=== PATIENT | female | born 1940 ===

== ENCOUNTER 2017-07-15 08:47 | Observation (INO) | payer MEDICARE ==
[2017-07-15] MEDS ORDERED: NITROGLYCERIN OINT 1 INCH/GM PACKET TOPICAL STA (09:16)
[2017-07-15] MEDS ORDERED: ASPIRIN 81 MG PO STA (09:16)
--- NOTE | 2017-07-15 09:22 | ED ---
General Adult HPI - General Chief complaint: Chest Pain Stated complaint: Chest pain Time Seen by Provider: 07/15/17 08:59 Source: patient, RN notes reviewed Mode of arrival: wheelchair Limitations: no limitations - History of Present Illness Initial comments: Patient is a pleasant 76-year-old female presenting to the emergency department with difficulty sleeping and cold/tightness in her chest. Patient admits to having some anxiety. Patient states she has not slept well for the past couple of weeks. Patient states last few nights she has a cold sensation in her chest that also feels somewhat like tightness. Patient states it usually lasts only 10 or 15 minutes. Patient states aspirin helps make it go away. Patient is currently symptom-free at this time. Patient states he may have some mild associated nausea with this. Patient is unclear if she has associated dyspnea. No diaphoresis. - Related Data Home Medications Medication Instructions Recorded Confirmed Aspirin 81 mg PO DAILY 07/15/17 07/15/17 Multivitamins, Thera [Multivitamin 1 tab PO DAILY 07/15/17 07/15/17 (formulary)] amLODIPine BESYLATE/BENAZEPRIL 1 cap PO DAILY 07/15/17 07/15/17 [Lotrel 10-20 mg Capsule] busPIRone HCl [Buspar] 5 mg PO BID 07/15/17 07/15/17 Allergies Allergy/AdvReac Type Severity Reaction Status Date / Time animal dander Allergy Unknown Verified 07/15/17 09:52 shellfish derived [Shellfish] Allergy Anaphylaxis Verified 07/15/17 09:52 Review of Systems ROS Statement: Those systems with pertinent positive or pertinent negative responses have been documented in the HPI. ROS Other: All systems not noted in ROS Statement are negative. Constitutional: Denies: fever Eyes: Denies: eye pain ENT: Denies: ear pain Respiratory: Denies: cough Cardiovascular: Reports: chest pain Endocrine: Denies: fatigue Gastrointestinal: Denies: abdominal pain Genitourinary: Denies: dysuria Musculoskeletal: Denies: back pain Skin: Denies: rash Neurological: Denies: weakness Past Medical History Past Medical History: Hypertension, Osteoarthritis (OA) History of Any Multi-Drug Resistant Organisms: None Reported Past Surgical History: Joint Replacement Additional Past Surgical History / Comment(s): oral Past Psychological History: Anxiety Smoking Status: Never smoker Past Alcohol Use History: Rare Past Drug Use History: None Reported General Exam Limitations: no limitations General appearance: alert, in no apparent distress Head exam: Present: atraumatic Eye exam: Present: normal appearance, PERRL ENT exam: Present: normal oropharynx Neck exam: Present: normal inspection Respiratory exam: Present: normal lung sounds bilaterally Cardiovascular Exam: Present: regular rate, normal rhythm Expanded Peripheral pulses: 2+: Radial (R), Radial (L), Posterior Tibialis (R), Posterior Tibialis (L) GI/Abdominal exam: Present: soft. Absent: tenderness Extremities exam: Present: normal inspection. Absent: calf tenderness Neurological exam: Present: alert Psychiatric exam: Present: normal affect, normal mood Skin exam: Present: normal color Course Vital Signs 07/15/17 07/15/17 07/15/17 08:52 10:11 11:19 Temperature 97.5 F L Pulse Rate 68 67 69 Respiratory 16 16 18 Rate Blood Pressure 143/64 131/63 129/69 O2 Sat by Pulse 98 98 99 Oximetry EKG Findings - EKG Comments: EKG Findings:: Normal sinus rhythm 61. W[place] 146. QRS 92. QT 408. QTC 410. Left axis. Normal QRS. Nonspecific T waves. Medical Decision Making - Lab Data Result diagrams: 07/15/17 09:19 07/15/17 09:19 Lab Results 07/15/17 07/15/17 07/15/17 Range/Units 09:19 09:19 09:19 WBC 8.2 (3.8-10.6) k/uL RBC 5.53 H (3.80-5.40) m/uL Hgb 16.7 H (11.4-16.0) gm/dL Hct 52.3 H (34.0-46.0) % MCV 94.6 (80.0-100.0) fL MCH 30.2 (25.0-35.0) pg MCHC 31.9 (31.0-37.0) g/dL RDW 14.8 (11.5-15.5) % Plt Count 287 (150-450) k/uL Neutrophils % 74 % Lymphocytes % 18 % Monocytes % 5 % Eosinophils % 1 % Basophils % 1 % Neutrophils # 6.1 (1.3-7.7) k/uL Lymphocytes # 1.5 (1.0-4.8) k/uL Monocytes # 0.4 (0-1.0) k/uL Eosinophils # 0.1 (0-0.7) k/uL Basophils # 0.0 (0-0.2) k/uL PT (9.0-12.0) sec INR (<1.2) APTT (22.0-30.0) sec D-Dimer (<0.60) mg/L FEU Sodium 141 (137-145) mmol/L Potassium 4.1 (3.5-5.1) mmol/L Chloride 107 (98-107) mmol/L Carbon Dioxide 23 (22-30) mmol/L Anion Gap 11 mmol/L BUN 10 (7-17) mg/dL Creatinine 0.75 (0.52-1.04) mg/dL Est GFR (MDRD) Af Amer >60 (>60 ml/min/1.73 sqM) Est GFR (MDRD) Non-Af >60 (>60 ml/min/1.73 sqM) Glucose 114 H (74-99) mg/dL Calcium 10.2 (8.4-10.2) mg/dL Magnesium 2.1 (1.6-2.3) mg/dL Total Bilirubin 1.0 (0.2-1.3) mg/dL AST 22 (14-36) U/L ALT 32 (9-52) U/L Alkaline Phosphatase 125 (38-126) U/L Total Creatine Kinase 44 (30-135) U/L CK-MB (CK-2) 0.7 (0.0-2.4) ng/mL CK-MB (CK-2) Rel Index 1.6 Troponin I <0.012 (0.000-0.034) ng/mL Total Protein 7.3 (6.3-8.2) g/dL Albumin 4.3 (3.5-5.0) g/dL Urine Color Urine Appearance (Clear) Urine pH (5.0-8.0) Ur Specific [place] (1.001-1.035) Urine Protein (Negative) Urine Glucose (UA) (Negative) Urine Ketones (Negative) Urine Blood (Negative) Urine Nitrite (Negative) Urine Bilirubin (Negative) Urine Urobilinogen (<2.0) mg/dL Ur Leukocyte Esterase (Negative) 11/13/17 11/13/17 Range/Units 09:19 10:51 WBC (3.8-10.6) k/uL RBC (3.80-5.40) m/uL Hgb (11.4-16.0) gm/dL Hct (34.0-46.0) % MCV (80.0-100.0) fL MCH (25.0-35.0) pg MCHC (31.0-37.0) g/dL RDW (11.5-15.5) % Plt Count (150-450) k/uL Neutrophils % % Lymphocytes % % Monocytes % % Eosinophils % % Basophils % % Neutrophils # (1.3-7.7) k/uL Lymphocytes # (1.0-4.8) k/uL Monocytes # (0-1.0) k/uL Eosinophils # (0-0.7) k/uL Basophils # (0-0.2) k/uL PT 10.4 (9.0-12.0) sec INR 1.0 (<1.2) APTT 24.7 (22.0-30.0) sec D-Dimer 0.60 H (<0.60) mg/L FEU Sodium (137-145) mmol/L Potassium (3.5-5.1) mmol/L Chloride (98-107) mmol/L Carbon Dioxide (22-30) mmol/L Anion Gap mmol/L BUN (7-17) mg/dL Creatinine (0.52-1.04) mg/dL Est GFR (MDRD) Af Amer (>60 ml/min/1.73 sqM) Est GFR (MDRD) Non-Af (>60 ml/min/1.73 sqM) Glucose (74-99) mg/dL Calcium (8.4-10.2) mg/dL Magnesium (1.6-2.3) mg/dL Total Bilirubin (0.2-1.3) mg/dL AST (14-36) U/L ALT (9-52) U/L Alkaline Phosphatase (38-126) U/L Total Creatine Kinase (30-135) U/L CK-MB (CK-2) (0.0-2.4) ng/mL CK-MB (CK-2) Rel Index Troponin I (0.000-0.034) ng/mL Total Protein (6.3-8.2) g/dL Albumin (3.5-5.0) g/dL Urine Color Light Yellow Urine Appearance Clear (Clear) Urine pH 5.0 (5.0-8.0) Ur Specific [place] 1.011 (1.001-1.035) Urine Protein Negative (Negative) Urine Glucose (UA) Negative (Negative) Urine Ketones Negative (Negative) Urine Blood Negative (Negative) Urine Nitrite Negative (Negative) Urine Bilirubin Negative (Negative) Urine Urobilinogen <2.0 (<2.0) mg/dL Ur Leukocyte Esterase Negative (Negative) - Radiology Data Radiology results: report reviewed (Computed tomography scan of the chest shows no evidence for pulmonary embolism.), image reviewed (Chest x-ray shows mild cardiomegaly.) Disposition Clinical Impression: Chest pain Disposition: ADMITTED IP TO THIS HOSP Referrals: Chantelle Simpson MD [Primary Care Provider] - 1-2 days Decision Time: 11:30
[2017-07-15 09:39] LABS: Basophils % (A) 1 %; CH 30.6; CHCM 32.5; Eosinophils # (A) 0.1 k/uL (0-0.7); Eosinophils % (A) 1 %; HCT 52.3 % (34.0-46.0); HDW 2.22; HGB 16.7 gm/dL (11.4-16.0); Luc # (Auto) 0.08; Luc % (Auto) 1; Lymphocytes # (A) 1.5 k/uL (1.0-4.8); Lymphocytes % (A) 18 %; MCH 30.2 pg (25.0-35.0); MCHC 31.9 g/dL (31.0-37.0); MCV 94.6 fL (80.0-100.0); Mean Platelet Volume 7.2; Monocytes # (A) 0.4 k/uL (0-1.0); Monocytes % (A) 5 %; Neutrophils # (A) 6.1 k/uL (1.3-7.7); Neutrophils % (A) 74 %; RBC 5.53 m/uL (3.80-5.40); RDW 14.8 % (11.5-15.5); WBC 8.2 k/uL (3.8-10.6); WBC (Perox) 7.96
--- NOTE | 2017-07-15 09:51 | XR ---
EXAMINATION TYPE: XR chest 2V DATE OF EXAM: 07/15/2017 COMPARISON: None HISTORY: 76-year-old female with chest pain TECHNIQUE: Frontal and lateral views FINDINGS: The heart is mildly enlarged. Mild diffuse interstitial prominence. No consolidation or pleural effus ion. IMPRESSION: Mild cardiomegaly. Mild interstitial prominence has a chronic appearance. No acute process seen.
[2017-07-15 09:53] LABS: Partial Thromboplastin Time 24.7 sec (22.0-30.0); Prothrombin Time 10.4 sec (9.0-12.0)
[2017-07-15 09:54] LABS: ALT 32 U/L (9-52); AST 22 U/L (14-36); Alkaline Phosphatase 125 U/L (38-126); Anion Gap 11 mmol/L; Blood Urea Nitrogen 10 mg/dL (7-17); Calcium 10.2 mg/dL (8.4-10.2); Carbon Dioxide 23 mmol/L (22-30); Chloride 107 mmol/L (98-107); Glucose 114 mg/dL (74-99); Magnesium 2.1 mg/dL (1.6-2.3); Non-African American GFR(MDRD) >60 (>60 ml/min/1.73 sqM); Potassium 4.1 mmol/L (3.5-5.1); Sodium 141 mmol/L (137-145); Total Protein 7.3 g/dL (6.3-8.2)
[2017-07-15] MEDS ORDERED: FAMOTIDINE 20 MG/2 ML VIAL IV STA (09:58)
[2017-07-15] MEDS ORDERED: RX INFO: IV CONTRAST WAS GIVEN 1 EACH MISC MISCELLANE PRN (09:58)
[2017-07-15] MEDS ORDERED: diphenhydrAMINE 50 MG/ML 1 ML VIAL IVP STA (09:58)
[2017-07-15] MEDS ORDERED: methylPREDNISolone SOD SUCCI 125 MG/2 ML VIAL IV STA (09:58)
[2017-07-15 10:03] LABS: Creatine Kinase 44 U/L (30-135)
[2017-07-15 10:15] LABS: Creatine Kinase MB 0.7 ng/mL (0.0-2.4); Troponin I <0.012 ng/mL (0.000-0.034)
--- NOTE | 2017-07-15 10:48 | CT ---
EXAMINATION TYPE: CT angio chest DATE OF EXAM: 07/15/2017 COMPARISON: NONE HISTORY: chest tightness, elevated d-dimer CT DLP: 479.5 mGycm CONTRAST: CT chest with contrast and 3D reconstruction with MIP imaging is performed with IV Contrast, patient injected with 70 mL of Omnipaque 350. Contrast-enhanced CT of the chest was performed through the course of the pulmonary arteries with herminia g and mediastinal window settings submitted. 3D reconstruction with MIP imaging was also performed. PULMONARY ARTERIES: The pulmonary arteries and their major tributaries are patent. I do not see shara dence for sizable filling defect to suggest pulmonary embolic process. LUNGS: The lungs are clear and free of infiltrate. Minimal scattered linear atelectasis. No pulmonary nodule or mass is detected. No pleural effusion. MEDIASTINUM: Thoracic aorta is of normal caliber . The heart is not enlarged. No evidence for media stinal mass. No mediastinal lymph nodes greater than 1cm. HILAR STRUCTURES: No evidence for mass. No hilar lymph nodes greater than 1 cm. UPPER ABDOMEN: No significant abnormality is seen. IMPRESSION: 1. No evidence for Pulmonary embolism at this time.
[2017-07-15 11:22] LABS: Appearance,Urine Clear (Clear); Bilirubin,Urine Negative (Negative); Glucose,Urine (UA) Negative (Negative); Ketones,Urine Negative (Negative); Leukocyte Esterase,Urine Negative (Negative); Nitrite,Urine Negative (Negative); Protein,Urine Negative (Negative); Specific Gravity,Urine 1.011 (1.001-1.035); UA Billing (MACRO vs. MICRO) CHEM; Urobilinogen,Urine <2.0 mg/dL (<2.0)
[2017-07-15] MEDS ORDERED: NITROGLYCERIN SL TABS 0.4 MG TAB SUBLINGUAL PRN (11:36)
--- NOTE | 2017-07-15 12:11 | XR ---
EXAMINATION TYPE: XR abdomen 1V DATE OF EXAM: 07/15/2017 CLINICAL DATA: 76-year-old female with pain, [facility] COMPARISON: 10/19/2013 FINDINGS: Supine imaging is limited for assessment of free air. Contrast is seen excreting from the renal collecting systems and accumulating in the bladder in keepi ng with patient's recent contrast-enhanced CT exam. No dilated small bowel loops. No significant stool burden. Left total hip arthroplasty partially visualized. Degenerated levoconvex curvature of the lumbar spin e. Suspect that this is in part positional. IMPRESSION: Nonobstructive bowel gas pattern. Excretion of contrast from the kidneys compatible with recent CT an giography study.
[2017-07-15 12:31] VITALS: RESP 18
[2017-07-15 15:30] LABS: Creatine Kinase 45 U/L (30-135)
[2017-07-15 15:43] LABS: Creatine Kinase MB 0.7 ng/mL (0.0-2.4); Troponin I <0.012 ng/mL (0.000-0.034)
[2017-07-15] MEDS: NITROGLYCERIN OINT 1 INCH/GM PACKET TOPICAL SCH ×3 (17:07→23:51)
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
[2017-07-15 21:38] LABS: Creatine Kinase MB 0.5 ng/mL (0.0-2.4); Troponin I 0.018 ng/mL (0.000-0.034)
[2017-07-16 05:19] LABS: Cholesterol 199 mg/dL (<200); HDL Cholesterol 60 mg/dL (40-60)
[2017-07-16] MEDS: NITROGLYCERIN OINT 1 INCH/GM PACKET TOPICAL SCH ×2 (05:35→12:10)
[2017-07-16] MEDS ORDERED: LISINOPRIL 20 MG TAB PO SCH (09:00)
[2017-07-16] MEDS ORDERED: ASPIRIN 325 MG TAB PO SCH (09:00)
[2017-07-16] MEDS ORDERED: amLODIPine 10 MG TAB PO SCH (09:00)
[2017-07-16] MEDS ORDERED: DOBUTamine DRIP for NUC MED 500 MG in DEXTROSE/WATER 1 250ML.BAG IV ONE (10:53)
[2017-07-16 11:06] VITALS: BMI 43.0
[2017-07-16] MEDS ORDERED: MULTIVITAMINS, THERA 1 EACH TAB PO SCH (12:00)
--- NOTE | 2017-07-16 12:08 | P.CRDCN ---
History of Present Illness Consult date: 07/16/17 History of present illness: This is a 76-year-old female past medical history significant for hypertension, anxiety and morbid obesity. She denies history of coronary artery disease, has never undergone cardiac catheterization or stress testing. We've been asked to see this patient in consultation for complaints of chest pain. Per the patient she states she has been suffering from extreme anxiety recently and was started on BuSpar in the beginning of July per her PCP. Since starting that medication she has experienced gastrointestinal side effects such as nausea, abdominal pain and diarrhea. This has been intermittent over the previous 3 weeks. She also describes a sensation of cold feeling down bilateral arms her chest and neck. She states she can feel this coming on and she can make it go away by taking deep breaths and talking to herself to calm her down. At the time of my examination she is chest pain- free. She denies associated shortness of breath, dizziness, palpitations, diaphoresis or vomiting. She also states she has had left flank pain which she is associating with probable kidney stone she has a significant history for follows urology regularly. EKG reveals sinus mechanism with nonspecific T-wave abnormality. There is no old EKG for comparison. Chest x-ray reveals cardiomegaly. No acute cardiopulmonary process. CT angios was performed in light of an elevated d-dimer was negative for PE. Cardiac enzymes negative 3. Cardiac risk factors include hypertension, hyperlipidemia and morbid obesity. Review of Systems CONSTITUTIONAL: Denies fever. Denies chills. EYES: Denies blurred vision. Denies vision changes. Denies eye pain. EARS, NOSE, MOUTH & THROAT: Denies headache. Denies sore throat. Denies ear pain. CARDIOVASCULAR: Complains of intermittent episodes of chest tightness. Denies shortness of breath. Denies orthopnea. Denies PND. Denies palpitations. RESPIRATORY: Denies cough. GASTROINTESTINAL: Denies abdominal pain. Complains of diarrhea. Denies constipation. Complains of nausea. Denies vomiting. MUSCULOSKELETAL: Denies myalgias. INTEGUMENTARY: Denies pruitis. Denies rash. NEUROLOGIC: Denies numbness. Denies tingling. Denies weakness. PSYCHIATRIC: Denies anxiety. Denies depression. ENDOCRINE: Denies fatigue. Denies weight change. Denies polydipsia. Denies polyurina. GENITOURINARY: Denies burning, hematuria or urgency with micturation. HEMATOLOGIC: Denies history of anemia. Denies bleeding. Past Medical History Past Medical History: Hypertension, Osteoarthritis (OA) Additional Past Medical History / Comment(s): Nephrolithiasis, nephritis, UTI, bronchitis, pleurisy, arthritis R shoulder L knee and L hip (had hip surgery). History of Any Multi-Drug Resistant Organisms: None Reported Past Surgical History: Joint Replacement Additional Past Surgical History / Comment(s): oral Additional Past Anesthesia/Blood Transfusion Reaction / Comment(s): Pt states post op day1 after hip surgery she had hallucinations. Past Psychological History: Anxiety Smoking Status: Never smoker Past Alcohol Use History: Rare Past Drug Use History: None Reported - Past Family History Mother Family Medical History: Hypertension Additional Family Medical History / Comment(s): Mother lived to be 93 or 94yrs old. Father Additional Family Medical History / Comment(s): Father at the age of 64 yrs. Pt unsure of father's medical hx. Medications and Allergies Home Medications Medication Instructions Recorded Confirmed Type Aspirin 81 mg PO DAILY 07/15/17 07/15/17 History Multivitamins, Thera [Multivitamin 1 tab PO DAILY 07/15/17 07/15/17 History (formulary)] amLODIPine BESYLATE/BENAZEPRIL 1 cap PO DAILY 07/15/17 07/15/17 History [Lotrel 10-20 mg Capsule] busPIRone HCl [Buspar] 5 mg PO BID 07/15/17 07/15/17 History Allergies Allergy/AdvReac Type Severity Reaction Status Date / Time animal dander Allergy Unknown Verified 07/15/17 09:52 shellfish derived [Shellfish] Allergy Anaphylaxis Verified 07/15/17 09:52 Physical Exam Vitals: Vital Signs Temp Pulse Pulse Resp BP BP Pulse Ox 07/16/17 07:55 97.8 F 72 18 148/79 95 07/16/17 04:00 97.8 F 77 18 145/80 97 07/16/17 03:51 18 07/15/17 23:51 18 07/15/17 23:47 98 F 61 18 108/52 95 07/15/17 20:00 98.1 F 72 18 138/73 94 L 07/15/17 16:00 98.3 F 91 18 131/78 96 07/15/17 12:29 97.9 F 77 18 129/70 99 07/15/17 12:00 97.1 F L 72 20 149/68 98 07/15/17 11:19 69 18 129/69 99 07/15/17 10:11 67 16 131/63 98 Intake and Output 07/15/17 07/16/17 07/16/17 22:59 06:59 14:59 Intake Total 360 Balance 360 Intake: Oral 360 Other: Voiding Method Toilet Toilet # Voids 1 1 GENERAL: This is a 76-year-old female in no apparent distress at the time of my examination. Morbidly obese. HEENT: Head is atraumatic, normocephalic. Pupils are equal, round. Sclerae anicteric. Conjunctivae are clear. Mucous membranes of the mouth are moist. Neck is supple. There is no jugular venous distention. No carotid bruit is heard. LUNGS: Clear to auscultation no wheezes, rales or rhonchi. No chest wall tenderness is noted on palpation or with deep breathing. HEART: Regular rate and rhythm without murmurs, rubs or gallops. S1 and S2 heard. ABDOMEN: Soft, nontender. Bowel sounds are heard. No organomegaly noted. EXTREMITIES: 2+ peripheral pulses with no evidence of peripheral edema and no calf tenderness noted. NEUROLOGIC: Patient is awake, alert and oriented x3. Results 07/15/17 09:19 07/15/17 09:19 Cardiac Enzymes 07/15/17 07/15/17 07/15/17 Range/Units 09:19 09:19 14:54 AST 22 (14-36) U/L CK-MB (CK-2) 0.7 0.7 (0.0-2.4) ng/mL Troponin I <0.012 <0.012 (0.000-0.034) ng/mL 07/15/17 Range/Units 20:50 AST (14-36) U/L CK-MB (CK-2) 0.5 (0.0-2.4) ng/mL Troponin I 0.018 (0.000-0.034) ng/mL Coagulation 07/15/17 Range/Units 09:19 PT 10.4 (9.0-12.0) sec APTT 24.7 (22.0-30.0) sec Lipids 07/15/17 Range/Units 09:19 Triglycerides 93 (<150) mg/dL Cholesterol 199 (<200) mg/dL HDL Cholesterol 60 (40-60) mg/dL CBC 07/15/17 Range/Units 09:19 WBC 8.2 (3.8-10.6) k/uL RBC 5.53 H (3.80-5.40) m/uL Hgb 16.7 H (11.4-16.0) gm/dL Hct 52.3 H (34.0-46.0) % Plt Count 287 (150-450) k/uL Comprehensive Metabolic Panel 07/15/17 Range/Units 09:19 Sodium 141 (137-145) mmol/L Potassium 4.1 (3.5-5.1) mmol/L Chloride 107 (98-107) mmol/L Carbon Dioxide 23 (22-30) mmol/L BUN 10 (7-17) mg/dL Creatinine 0.75 (0.52-1.04) mg/dL Glucose 114 H (74-99) mg/dL Calcium 10.2 (8.4-10.2) mg/dL AST 22 (14-36) U/L ALT 32 (9-52) U/L Alkaline Phosphatase 125 (38-126) U/L Total Protein 7.3 (6.3-8.2) g/dL Albumin 4.3 (3.5-5.0) g/dL Current Medications Generic Name Dose Route Start Last Admin Trade Name Freq PRN Reason Stop Dose Admin Amlodipine Besylate 10 mg 07/16/17 09:00 Norvasc PO DAILY [facility] Aspirin 325 mg 07/16/17 09:00 Aspirin PO DAILY [facility] Lisinopril 20 mg 07/16/17 09:00 Zestril PO DAILY [facility] Miscellaneous Information 1 each 07/15/17 09:58 07/15/17 10:10 Rx Info: Iv Contrast Was Given MISCELLANE 07/17/17 09:58 1 each DAILY PRN Administration Per Protocol Multivitamins 1 each 07/16/17 12:00 Theragran PO DAILY@1200 [facility] Nitroglycerin 1 inch 07/15/17 12:00 07/16/17 05:35 Nitro-Bid Oint TOPICAL Not Given Q6HR [facility] Nitroglycerin 0.4 mg 07/15/17 11:36 Nitrostat SUBLINGUAL Q5M PRN Chest Pain Sodium Chloride 10 ml 07/15/17 21:00 07/15/17 20:31 Saline Flush IV 10 ml BID MANJU Administration Intake and Output 07/15/17 07/16/17 07/16/17 22:59 06:59 14:59 Intake Total 360 Balance 360 Intake: Oral 360 Other: Voiding Method Toilet Toilet # Voids 1 1 07/15/17 09:19 07/15/17 09:19 Assessment and Plan Assessment: ASSESSMENT 1. Chest pain, atypical 2. Hypertension, controlled 3. Hyperlipidemia, pt refuses to take statins 4. Anxiety 5. Morbid obesity PLAN Obtain echocardiogram to assess cardiac structure and function. Acute myocardial infarction has been ruled out. Dobutamine stress echocardiogram has been recommended, although the patient is refusing. The importance of this test has been discussed and she still declines. She has been instructed to follow up with her primary care physician for further discussion and possible cardiac evaluation. Lifestyle modifications have been discussed. Thank you kindly for this consultation. Nurse Practitioner note has been reviewed, I agree with a documented findings and plan of care. Patient was seen and examined.
--- NOTE | 2017-07-16 12:20 | ECHOF ---
Referral Reason:Chest pain MEASUREMENTS -------- HEIGHT: 154.9 cm WEIGHT: 103.0 kg BP: 148/79 RVIDd: 3.1 cm (< 3.3) IVSd: 1.1 cm (0.6 - 1.1) LVIDd: 4.7 cm (3.9 - 5.3) LVPWd: 1.0 cm (0.6 - 1.1) IVSs: 1.5 cm LVIDs: 3.2 cm LVPWs: 1.7 cm LA Diam: 3.5 cm (2.7 - 3.8) LAESV Index (A-L): 20.15 ml/m Ao Diam: 3.6 cm (2.0 - 3.7) AV Cusp: 2.0 cm (1.5 - 2.6) MV EXCURSION: 22.473 mm (> 18.000) MV EF SLOPE: 63 mm/s (70 - 150) EPSS: 1.0 cm MV E Lalito: 1.01 m/s MV DecT: 145 ms MV A Lalito: 1.13 m/s MV E/A Ratio: 0.90 AV maxP.53 mmHg AV meanP.26 mmHg RAP: 5.00 mmHg RVSP: 18.87 mmHg FINDINGS -------- Sinus rhythm. This was a technically adequate study. The left ventricular size is normal. There is borderline concentric left ventricular hypertrophy. Overall left ventricular systolic function is normal with, an EF between 55 - 60 %. The right ventricle is normal in size. Normal LA size by volume 22+/-6 ml/m2. The right atrium is normal in size. Aortic valve is trileaflet and is mildly thickened. The mitral valve leaflets are mildly thickened. Mild mitral annular calcification present. There is trace mitral regurgitation. Mild tricuspid regurgitation present. Right ventricular systolic pressure is normal at < 35 mmHg. Trace/mild (physiologic) pulmonic regurgitation. The aortic root size is normal. Normal inferior vena cava with normal inspiratory collapse consistent with estimated right atrial pre ssure of 5 mmHg. There is no pericardial effusion. CONCLUSIONS -------- 1. Sinus rhythm. 2. This was a technically adequate study. 3. The left ventricular size is normal. 4. There is borderline concentric left ventricular hypertrophy. 5. Overall left ventricular systolic function is normal with, an EF between 55 - 60 %. 6. The right ventricle is normal in size. 7. Normal LA size by volume 22+/-6 ml/m2. 8. The right atrium is normal in size. 9. Aortic valve is trileaflet and is mildly thickened. 10. The mitral valve leaflets are mildly thickened. 11. Mild mitral annular calcification present. 12. There is trace mitral regurgitation. 13. Mild tricuspid regurgitation present. 14. Right ventricular systolic pressure is normal at < 35 mmHg. 15. Trace/mild (physiologic) pulmonic regurgitation. 16. The aortic root size is normal. 17. Normal inferior vena cava with normal inspiratory collapse consistent with estimated right atrial pressure of 5 mmHg. 18. There is no pericardial effusion. STERILE TECH: Jami Stark RDCS
[2017-07-16 15:44] VITALS: BP 123/68; PULSE 76; TEMP 97.3
--- NOTE | 2017-07-16 17:54 | P.DS ---
Providers Date of admission: 07/15/17 11:37 Attending physician: Jose Madrigal Consults: 07/15/17 11:36 Consult Physician Urgent Consulting Provider: Ana Cristina Pike Consult Reason/Comments: cp Do you want consulting provider notified?: Yes Primary care physician: Chantelle [place] [facility] Course: Patient was admitted with atypical chest pain, declined to undergo stress test. Patient will follow with cardiology as an outpatient. Patient appears to be an anxious person has multitude of symptoms all of which completely resolved at this point of time patient was asked to follow with PCP as an outpatient closely. I spent extensive amount of time answering her questions. PHYSICAL EXAMINATION: GENERAL: The patient is alert and oriented x3, not in any acute distress. Well developed, well nourished. HEENT: Pupils are round and equally reacting to light. EOMI. No scleral icterus. No conjunctival pallor. Normocephalic, atraumatic. No pharyngeal erythema. No thyromegaly. CARDIOVASCULAR: S1 and S2 present. No murmurs, rubs, or gallops. PULMONARY: Chest is clear to auscultation, no wheezing or crackles. ABDOMEN: Soft, nontender, nondistended, normoactive bowel sounds. No palpable organomegaly. MUSCULOSKELETAL: No joint swelling or deformity. EXTREMITIES: No cyanosis, clubbing, or pedal edema. NEUROLOGICAL: Gross neurological examination did not reveal any focal deficits. SKIN: No rashes. #1 chest tightness. Likely due to anxiety and insomnia. Ruled out acute coronary syndromes #2 hypertension controlled #3 osteoarthritis with history of left hip arthroplasty #4 anxiety Plan - Discharge Summary Discharge Rx Participant: No New Discharge Prescriptions: No Action busPIRone HCl [Buspar] 5 mg PO BID amLODIPine BESYLATE/BENAZEPRIL [Lotrel 10-20 mg Capsule] 1 cap PO DAILY Multivitamins, Thera [Multivitamin (formulary)] 1 tab PO DAILY Aspirin 81 mg PO DAILY Discharge Medication List Aspirin 81 mg PO DAILY 07/15/17 [History] Multivitamins, Thera [Multivitamin (formulary)] 1 tab PO DAILY 07/15/17 [History ] amLODIPine BESYLATE/BENAZEPRIL [Lotrel 10-20 mg Capsule] 1 cap PO DAILY [History] busPIRone HCl [Buspar] 5 mg PO BID 07/15/17 [History] Follow up Appointment(s)/Referral(s): Chantelle Simpson MD [Primary Care Provider] - 3 Days Patient Instructions/Handouts: Chest Pain (GEN) Discharge Disposition: HOME SELF-CARE
== END 2017-07-16 15:56 | disposition home or self-care (01) ==
LOC: EC 08:47 → 3OBS 11:37
PROVIDERS: ADMIT Hospitalist; ATTEND Hospitalist
DX: R07.89 Other chest pain (principal); G47.00 Insomnia, unspecified; F41.9 Anxiety disorder, unspecified; E78.5 Hyperlipidemia, unspecified; E66.01 Morbid (severe) obesity due to excess calories; I11.9 Hypertensive heart disease without heart failure; M19.011 Primary osteoarthritis, right shoulder; Z79.82 Long term (current) use of aspirin; Z79.899 Other long term (current) drug therapy; Z82.49 Family history of ischemic heart disease and other diseases of the circulatory system; Z68.41 Body mass index [BMI] 40.0-44.9, adult; Z71.3 Dietary counseling and surveillance
CPT/HCPCS: 96374; 96375; 99285; 36415; 93005; 93306; 85379; 80061; 80053; 82550; 82553; 83735; 84484; 85025; 85610; 85730; 81003; 71020; 74000; 71275; G0378 ×2; J1200; J2930; Q9967

== ENCOUNTER 2017-08-19 20:40 | Emergency (ER) | payer MEDICARE ==
--- NOTE | 2017-08-19 21:20 | ED ---
Abdominal Pain HPI - General Chief Complaint: Abdominal Pain Stated Complaint: abdominal & shoulder pain/burning Time Seen by Provider: 08/19/17 20:57 Source: patient Mode of arrival: wheelchair Limitations: no limitations - History of Present Illness MD Complaint: abdominal pain -: days(s) Location: periumbilical, epigastric Radiation: none Migration to: no migration Severity: moderate Quality: burning Consistency: intermittent Improves With: nothing Worsens With: nothing Associated Symptoms: denies other symptoms - Related Data Home Medications Medication Instructions Recorded Confirmed Aspirin 81 mg PO DAILY 07/15/17 08/27/17 Cephalexin [Keflex] 2,000 mg PO DIRECTED PRN 08/15/17 08/27/17 Sertraline HCl [Zoloft] 25 mg PO DAILY@1200 08/15/17 08/27/17 Previous Rx's Medication Instructions Recorded ALPRAZolam [Xanax] 0.25 mg PO TID PRN #20 tab 08/28/17 Omeprazole [PriLOSEC] 20 mg PO AC-BID #30 cap 08/28/17 amLODIPine BESYLATE/BENAZEPRIL 0.5 cap PO DAILY #0 08/28/17 [Lotrel 10-20 mg Capsule] Allergies Allergy/AdvReac Type Severity Reaction Status Date / Time animal dander Allergy Unknown Verified 08/27/17 18:39 iodine Allergy Anaphylaxis Verified 08/27/17 18:39 shellfish derived [Shellfish] Allergy Anaphylaxis Verified 08/27/17 18:39 sulfamethoxazole Allergy Unknown Verified 08/27/17 18:39 [From Bactrim] trimethoprim [From Bactrim] Allergy Unknown Verified 08/27/17 18:39 Review of Systems ROS Statement: Those systems with pertinent positive or pertinent negative responses have been documented in the HPI. ROS Other: All systems not noted in ROS Statement are negative. Constitutional: Reports: weakness. Denies: fever, chills Respiratory: Denies: cough, dyspnea Cardiovascular: Denies: chest pain, palpitations, edema, syncope Gastrointestinal: Reports: abdominal pain, nausea. Denies: vomiting, diarrhea, melena, hematochezia Genitourinary: Denies: dysuria, hematuria Musculoskeletal: Denies: back pain Skin: Denies: rash Neurological: Denies: headache, weakness, numbness Past Medical History Past Medical History: Hypertension, Osteoarthritis (OA) Additional Past Medical History / Comment(s): Nephrolithiasis, nephritis, UTI, bronchitis, pleurisy, arthritis R shoulder L knee and L hip (had hip surgery). History of Any Multi-Drug Resistant Organisms: None Reported Past Surgical History: Joint Replacement Additional Past Surgical History / Comment(s): oral Additional Past Anesthesia/Blood Transfusion Reaction / Comment(s): Pt states post op day1 after hip surgery she had hallucinations. Past Psychological History: Anxiety Smoking Status: Never smoker Past Alcohol Use History: None Reported Past Drug Use History: None Reported - Past Family History Mother Family Medical History: Hypertension Additional Family Medical History / Comment(s): Mother lived to be 93 or 94yrs old. Father Additional Family Medical History / Comment(s): Father at the age of 64 yrs. Pt unsure of father's medical hx. General Exam Limitations: no limitations General appearance: alert, in no apparent distress, obese Head exam: Present: atraumatic, normocephalic Eye exam: Present: normal appearance. Absent: scleral icterus, conjunctival injection ENT exam: Present: normal oropharynx Neck exam: Present: normal inspection Respiratory exam: Present: normal lung sounds bilaterally. Absent: respiratory distress, wheezes, rales, rhonchi, stridor Cardiovascular Exam: Present: regular rate, normal rhythm, normal heart sounds. Absent: systolic murmur, diastolic murmur GI/Abdominal exam: Present: soft. Absent: distended, tenderness, guarding, rebound, rigid Extremities exam: Present: normal inspection, normal capillary refill. Absent: pedal edema, calf tenderness Back exam: Present: normal inspection. Absent: CVA tenderness (R), CVA tenderness (L) Neurological exam: Present: alert Skin exam: Present: warm, dry, intact, normal color. Absent: rash Course Vital Signs 08/19/17 08/19/17 08/20/17 20:47 23:03 00:28 Temperature 98.3 F 98.5 F 97.6 F Pulse Rate 84 68 62 Respiratory 18 19 Rate Blood Pressure 170/78 140/73 161/92 O2 Sat by Pulse 98 97 98 Oximetry Medical Decision Making - Medical Decision Making Patient is 76-year-old woman who has been having intermittent abdominal pains and intermittent chest/back pains going back for a couple of months. I did recommend admission for telemetry monitoring, serial cardiac enzymes, and cardiology consultation to again see about stress test, but the patient is refusing this. She does have an existing appointment with her physician tomorrow and will keep this. She is currently pain-free at the moment and I discussed return parameters. Discussed further follow-up and answered all questions. - Lab Data Result diagrams: 08/19/17 21:15 08/19/17 21:15 Lab Results 08/19/17 08/19/17 08/19/17 Range/Units 21:15 21:15 21:15 WBC 8.4 (3.8-10.6) k/uL RBC 5.40 (3.80-5.40) m/uL Hgb 16.5 H (11.4-16.0) gm/dL Hct 49.4 H (34.0-46.0) % MCV 91.3 (80.0-100.0) fL MCH 30.6 (25.0-35.0) pg MCHC 33.5 (31.0-37.0) g/dL RDW 13.5 (11.5-15.5) % Plt Count 317 (150-450) k/uL Neutrophils % 72 % Lymphocytes % 19 % Monocytes % 7 % Eosinophils % 1 % Basophils % 1 % Neutrophils # 6.1 (1.3-7.7) k/uL Lymphocytes # 1.6 (1.0-4.8) k/uL Monocytes # 0.6 (0-1.0) k/uL Eosinophils # 0.1 (0-0.7) k/uL Basophils # 0.0 (0-0.2) k/uL Sodium 137 (137-145) mmol/L Potassium 3.8 (3.5-5.1) mmol/L Chloride 105 (98-107) mmol/L Carbon Dioxide 23 (22-30) mmol/L Anion Gap 9 mmol/L BUN 9 (7-17) mg/dL Creatinine 0.75 (0.52-1.04) mg/dL Est GFR (MDRD) Af Amer >60 (>60 ml/min/1.73 sqM) Est GFR (MDRD) Non-Af >60 (>60 ml/min/1.73 sqM) Glucose 111 H (74-99) mg/dL Calcium 10.0 (8.4-10.2) mg/dL Total Bilirubin 0.7 (0.2-1.3) mg/dL AST 16 (14-36) U/L ALT 25 (9-52) U/L Alkaline Phosphatase 110 (38-126) U/L Troponin I <0.012 (0.000-0.034) ng/mL Total Protein 6.6 (6.3-8.2) g/dL Albumin 3.8 (3.5-5.0) g/dL Amylase 63 (30-110) U/L Lipase 249 (23-300) U/L Urine Color Urine Appearance (Clear) Urine pH (5.0-8.0) Ur Specific [place] (1.001-1.035) Urine Protein (Negative) Urine Glucose (UA) (Negative) Urine Ketones (Negative) Urine Blood (Negative) Urine Nitrite (Negative) Urine Bilirubin (Negative) Urine Urobilinogen (<2.0) mg/dL Ur Leukocyte Esterase (Negative) Urine RBC (0-5) /hpf Urine WBC (0-5) /hpf Ur Squamous Epith Cells (0-4) /hpf Urine Bacteria (None) /hpf Urine Mucus (None) /hpf 08/19/17 Range/Units 21:17 WBC (3.8-10.6) k/uL RBC (3.80-5.40) m/uL Hgb (11.4-16.0) gm/dL Hct (34.0-46.0) % MCV (80.0-100.0) fL MCH (25.0-35.0) pg MCHC (31.0-37.0) g/dL RDW (11.5-15.5) % Plt Count (150-450) k/uL Neutrophils % % Lymphocytes % % Monocytes % % Eosinophils % % Basophils % % Neutrophils # (1.3-7.7) k/uL Lymphocytes # (1.0-4.8) k/uL Monocytes # (0-1.0) k/uL Eosinophils # (0-0.7) k/uL Basophils # (0-0.2) k/uL Sodium (137-145) mmol/L Potassium (3.5-5.1) mmol/L Chloride (98-107) mmol/L Carbon Dioxide (22-30) mmol/L Anion Gap mmol/L BUN (7-17) mg/dL Creatinine (0.52-1.04) mg/dL Est GFR (MDRD) Af Amer (>60 ml/min/1.73 sqM) Est GFR (MDRD) Non-Af (>60 ml/min/1.73 sqM) Glucose (74-99) mg/dL Calcium (8.4-10.2) mg/dL Total Bilirubin (0.2-1.3) mg/dL AST (14-36) U/L ALT (9-52) U/L Alkaline Phosphatase (38-126) U/L Troponin I (0.000-0.034) ng/mL Total Protein (6.3-8.2) g/dL Albumin (3.5-5.0) g/dL Amylase (30-110) U/L Lipase (23-300) U/L Urine Color Yellow Urine Appearance Cloudy H (Clear) Urine pH 5.5 (5.0-8.0) Ur Specific [place] 1.008 (1.001-1.035) Urine Protein Negative (Negative) Urine Glucose (UA) Negative (Negative) Urine Ketones Negative (Negative) Urine Blood Negative (Negative) Urine Nitrite Negative (Negative) Urine Bilirubin Negative (Negative) Urine Urobilinogen <2.0 (<2.0) mg/dL Ur Leukocyte Esterase Trace H (Negative) Urine RBC <1 (0-5) /hpf Urine WBC 8 H (0-5) /hpf Ur Squamous Epith Cells 1 (0-4) /hpf Urine Bacteria Occasional H (None) /hpf Urine Mucus Rare H (None) /hpf - EKG Data -: EKG Interpreted by Oh EKG shows normal: sinus rhythm, axis (Left axis deviation), intervals (Normal), QRS complexes (Low voltage QRS complexes) Rate: bradycardia (Rate approximately 59 bpm) Interpretation: nonspecific ST-T wave changes Disposition Clinical Impression: Chest pain, Lower abdominal pain Disposition: HOME SELF-CARE Condition: Good Instructions: Chest Pain (ED), Abdominal Pain (ED) Referrals: Chantelle Simpson MD [Primary Care Provider] - 1-2 days Umm Walls MD [STAFF PHYSICIAN] - 1-2 days Erick Walls MD [STAFF PHYSICIAN] - 1-2 days
[2017-08-19 21:58] LABS: Basophils % (A) 1 %; CH 31.2; CHCM 34.3; Eosinophils # (A) 0.1 k/uL (0-0.7); Eosinophils % (A) 1 %; HCT 49.4 % (34.0-46.0); HDW 2.38; HGB 16.5 gm/dL (11.4-16.0); Luc # (Auto) 0.12; Luc % (Auto) 1; Lymphocytes # (A) 1.6 k/uL (1.0-4.8); Lymphocytes % (A) 19 %; MCH 30.6 pg (25.0-35.0); MCHC 33.5 g/dL (31.0-37.0); MCV 91.3 fL (80.0-100.0); Mean Platelet Volume 6.4; Monocytes # (A) 0.6 k/uL (0-1.0); Monocytes % (A) 7 %; Neutrophils # (A) 6.1 k/uL (1.3-7.7); Neutrophils % (A) 72 %; RDW 13.5 % (11.5-15.5); WBC 8.4 k/uL (3.8-10.6); WBC (Perox) 8.18
[2017-08-19 21:58] LABS: Appearance,Urine Cloudy (Clear); Bacteria,Urine Occasional /hpf; Bilirubin,Urine Negative (Negative); Glucose,Urine (UA) Negative (Negative); Ketones,Urine Negative (Negative); Leukocyte Esterase,Urine Trace (Negative); Mucus,Urine Rare /hpf; Nitrite,Urine Negative (Negative); PH, Urine 5.5 (5.0-8.0); Particle Count 1521; Protein,Urine Negative (Negative); RBC,Urine <1 /hpf (0-5); Specific Gravity,Urine 1.008 (1.001-1.035); Squamous Epithelial Cell,Urine 1 /hpf (0-4); UA Billing (MACRO vs. MICRO) MICRO; Urobilinogen,Urine <2.0 mg/dL (<2.0); WBC,Urine 8 /hpf (0-5)
[2017-08-19 22:04] LABS: ALT 25 U/L (9-52); AST 16 U/L (14-36); Alkaline Phosphatase 110 U/L (38-126); Amylase 63 U/L (30-110); Anion Gap 9 mmol/L; Blood Urea Nitrogen 9 mg/dL (7-17); Carbon Dioxide 23 mmol/L (22-30); Chloride 105 mmol/L (98-107); Glucose 111 mg/dL (74-99); Non-African American GFR(MDRD) >60 (>60 ml/min/1.73 sqM); Potassium 3.8 mmol/L (3.5-5.1); Sodium 137 mmol/L (137-145); Total Bilirubin 0.7 mg/dL (0.2-1.3); Total Protein 6.6 g/dL (6.3-8.2)
--- NOTE | 2017-08-19 22:10 | XR ---
EXAMINATION: XR chest 1V portable DATE AND TIME: 08/19/2017 10:04 PM ORDERING PROVIDER: Venkat Adamson MD CLINICAL INDICATION: abdominal pain TECHNIQUE: AP portable upright COMPARISON: 07/15/2017 DESCRIPTION: The lungs are clear. The pleural spaces are negative. The cardiac silhouette is mildly enlarged, unchanged. The mediastinal and pleural silhouettes are unr emarkable. The skeletal structures are intact without focal findings. The soft tissues are unremarkable. IMPRESSION: NO ACUTE PROCESS.
[2017-08-19] MEDS ORDERED: ONDANSETRON 4 MG/2 ML VIAL IVP STA (23:03)
--- NOTE | 2017-08-20 00:07 | US ---
EXAM: US Abdomen-right upper quadrant ultrasound CLINICAL HISTORY: Reason: Pain, attention RUQ TECHNIQUE: Real-time ultrasound of the right upper quadrant with image documentation. COMPARISON: CT abdomen 08/15/2017 FINDINGS: Limitations: Ultrasound examination somewhat limited due to patient body habitus. Liver: Increased hepatic echotexture most suggestive of hepatic fatty infiltration. No focal hepatic abnormalities or masses identified. Gallbladder: Gallbladder is unremarkable without evidence of cholelithiasis or gallbladder wall thickening. Common bile duct: Common bile duct is nondilated measuring 3.4 mm Pancreas: Pancreas appears grossly normal, although pancreatic tail region subungually visualized. Pancreatic duct measures 2.1 mm without significant ductal dilatation. Right Kidney: Right kidney is of normal size and echotexture. Multiple parapelvic renal cysts measuring up to 3.2 cm as were evident on CT 08/15/17. No evidence of hydronephrosis. IMPRESSION: Findings suggesting hepatic fatty infiltration. No evidence of cholelithiasis or gallbladder wall thickening. Multiple right renal parapelvic cysts.
[2017-08-20 00:29] VITALS: BP 161/92; PULSE 62; RESP 19; TEMP 97.6
== END 2017-08-20 00:44 | disposition home or self-care (01) ==
LOC: EC 20:40
DX: R07.9 Chest pain, unspecified (principal); R10.33 Periumbilical pain; I10 Essential (primary) hypertension; M19.90 Unspecified osteoarthritis, unspecified site; F41.9 Anxiety disorder, unspecified; E66.9 Obesity, unspecified; Z87.442 Personal history of urinary calculi; Z87.440 Personal history of urinary (tract) infections; Z91.09 Other allergy status, other than to drugs and biological substances; Z68.41 Body mass index [BMI] 40.0-44.9, adult; Z88.2 Allergy status to sulfonamides; Z91.048 Other nonmedicinal substance allergy status; Z91.013 Allergy to seafood; Z79.82 Long term (current) use of aspirin; Z98.890 Other specified postprocedural states; Z79.899 Other long term (current) drug therapy
CPT/HCPCS: 36415; 93005; 80053; 82150; 83690; 84484; 85025; 81001; 71010; 76705; 99284; 96374; J2405

== ENCOUNTER 2017-08-27 18:36 | Observation (INO) | payer MEDICARE ==
[2017-08-27 18:48] VITALS: RESP 18
[2017-08-27] MEDS ORDERED: NITROGLYCERIN OINT 1 INCH/GM PACKET TOPICAL STA (19:33)
[2017-08-27] MEDS ORDERED: ASPIRIN 81 MG PO STA (19:33)
--- NOTE | 2017-08-27 19:36 | ED ---
General Adult HPI - General Chief complaint: Chest Pain Stated complaint: Chest Pain Time Seen by Provider: 08/27/17 19:22 Source: patient, RN notes reviewed Mode of arrival: EMS Limitations: no limitations - History of Present Illness Initial comments: Patient is a pleasant 76-year-old female presenting to the emergency Department with chest discomfort. Patient has had symptoms for times now in the past several weeks. Patient had another episode today. Discomfort is now mild. This time discomfort felt like burning across her chest however now is more pressure. No associated dyspnea or diaphoresis. Patient did have some nausea. Previous episodes patient had discomfort in her abdominal region however none today. Patient was kept in the hospital one point however she refused to have stress test done. Patient states on her past visit the doctor thought it was more gastrointestinal and prescribed Pepcid without much improvement. She does have an appointment to see gastroenterology on September 11. - Related Data Home Medications Medication Instructions Recorded Confirmed Aspirin 81 mg PO DAILY 07/15/17 08/27/17 amLODIPine BESYLATE/BENAZEPRIL 1 cap PO DAILY 07/15/17 08/27/17 [Lotrel 10-20 mg Capsule] Cephalexin [Keflex] 2,000 mg PO DIRECTED PRN 08/15/17 08/27/17 Sertraline HCl [Zoloft] 25 mg PO DAILY@1200 08/15/17 08/27/17 Allergies Allergy/AdvReac Type Severity Reaction Status Date / Time animal dander Allergy Unknown Verified 08/27/17 18:39 iodine Allergy Anaphylaxis Verified 08/27/17 18:39 shellfish derived [Shellfish] Allergy Anaphylaxis Verified 08/27/17 18:39 sulfamethoxazole Allergy Unknown Verified 08/27/17 18:39 [From Bactrim] trimethoprim [From Bactrim] Allergy Unknown Verified 08/27/17 18:39 Review of Systems ROS Statement: Those systems with pertinent positive or pertinent negative responses have been documented in the HPI. ROS Other: All systems not noted in ROS Statement are negative. Constitutional: Denies: fever Eyes: Denies: eye pain ENT: Denies: ear pain Respiratory: Denies: cough, dyspnea Cardiovascular: Reports: chest pain Endocrine: Denies: fatigue Gastrointestinal: Reports: nausea Genitourinary: Denies: dysuria Musculoskeletal: Denies: back pain Skin: Denies: rash Neurological: Denies: weakness Past Medical History Past Medical History: Hypertension, Osteoarthritis (OA) Additional Past Medical History / Comment(s): Nephrolithiasis, nephritis, UTI, bronchitis, pleurisy, arthritis R shoulder L knee and L hip (had hip surgery). History of Any Multi-Drug Resistant Organisms: None Reported Past Surgical History: Joint Replacement Additional Past Surgical History / Comment(s): oral Additional Past Anesthesia/Blood Transfusion Reaction / Comment(s): Pt states post op day1 after hip surgery she had hallucinations. Past Psychological History: Anxiety Smoking Status: Never smoker Past Alcohol Use History: None Reported Past Drug Use History: None Reported - Past Family History Mother Family Medical History: Hypertension Additional Family Medical History / Comment(s): Mother lived to be 93 or 94yrs old. Father Additional Family Medical History / Comment(s): Father at the age of 64 yrs. Pt unsure of father's medical hx. General Exam Limitations: no limitations General appearance: alert, in no apparent distress Head exam: Present: atraumatic, normocephalic Eye exam: Present: normal appearance, PERRL ENT exam: Present: normal oropharynx Neck exam: Present: normal inspection Respiratory exam: Present: normal lung sounds bilaterally. Absent: chest wall tenderness Cardiovascular Exam: Present: regular rate, normal rhythm Expanded Peripheral pulses: 2+: Radial (R), Radial (L), Posterior Tibialis (R), Posterior Tibialis (L) GI/Abdominal exam: Present: soft. Absent: tenderness Extremities exam: Present: normal inspection. Absent: pedal edema, calf tenderness Neurological exam: Present: alert Psychiatric exam: Present: normal affect, normal mood Skin exam: Present: normal color Course Vital Signs 08/27/17 08/27/17 18:45 19:34 Temperature 98.7 F Pulse Rate 65 62 Respiratory 18 18 Rate Blood Pressure 157/70 132/62 O2 Sat by Pulse 100 100 Oximetry EKG Findings - EKG Comments: EKG Findings:: Sinus rhythm at 62. SC 142. QRS 92. QT 382. QTC 387. Left axis. Low QRS voltage. Artifact is present. Normal QRS. Nonspecific ST-T. Medical Decision Making - Medical Decision Making Patient reexamined and resting comfortably in bed. Patient does feel better at this time. Case was discussed in detail with Dr. Wise, who will admit for Dr. Peralta. - Lab Data Result diagrams: 08/27/17 18:58 08/27/17 18:58 Lab Results 08/27/17 08/27/17 08/27/17 Range/Units 18:58 18:58 18:58 WBC 8.0 (3.8-10.6) k/uL RBC 5.28 (3.80-5.40) m/uL Hgb 15.9 (11.4-16.0) gm/dL Hct 49.4 H (34.0-46.0) % MCV 93.7 (80.0-100.0) fL MCH 30.0 (25.0-35.0) pg MCHC 32.1 (31.0-37.0) g/dL RDW 14.8 (11.5-15.5) % Plt Count 284 (150-450) k/uL Neutrophils % 67 % Lymphocytes % 24 % Monocytes % 6 % Eosinophils % 1 % Basophils % 1 % Neutrophils # 5.4 (1.3-7.7) k/uL Lymphocytes # 1.9 (1.0-4.8) k/uL Monocytes # 0.5 (0-1.0) k/uL Eosinophils # 0.1 (0-0.7) k/uL Basophils # 0.1 (0-0.2) k/uL PT (9.0-12.0) sec INR (<1.2) APTT (22.0-30.0) sec Sodium 137 (137-145) mmol/L Potassium 4.1 (3.5-5.1) mmol/L Chloride 108 H (98-107) mmol/L Carbon Dioxide 20 L (22-30) mmol/L Anion Gap 9 mmol/L BUN 15 (7-17) mg/dL Creatinine 0.77 (0.52-1.04) mg/dL Est GFR (MDRD) Af Amer >60 (>60 ml/min/1.73 sqM) Est GFR (MDRD) Non-Af >60 (>60 ml/min/1.73 sqM) Glucose 97 (74-99) mg/dL Calcium 9.6 (8.4-10.2) mg/dL Magnesium 2.1 (1.6-2.3) mg/dL Total Bilirubin 0.9 (0.2-1.3) mg/dL AST 26 (14-36) U/L ALT 27 (9-52) U/L Alkaline Phosphatase 91 (38-126) U/L Total Creatine Kinase 40 (30-135) U/L CK-MB (CK-2) <0.2 (0.0-2.4) ng/mL CK-MB (CK-2) Rel Index Troponin I <0.012 (0.000-0.034) ng/mL Total Protein 7.0 (6.3-8.2) g/dL Albumin 3.9 (3.5-5.0) g/dL Amylase 106 (30-110) U/L Lipase 167 (23-300) U/L 08/27/17 Range/Units 18:58 WBC (3.8-10.6) k/uL RBC (3.80-5.40) m/uL Hgb (11.4-16.0) gm/dL Hct (34.0-46.0) % MCV (80.0-100.0) fL MCH (25.0-35.0) pg MCHC (31.0-37.0) g/dL RDW (11.5-15.5) % Plt Count (150-450) k/uL Neutrophils % % Lymphocytes % % Monocytes % % Eosinophils % % Basophils % % Neutrophils # (1.3-7.7) k/uL Lymphocytes # (1.0-4.8) k/uL Monocytes # (0-1.0) k/uL Eosinophils # (0-0.7) k/uL Basophils # (0-0.2) k/uL PT 10.4 (9.0-12.0) sec INR 1.1 (<1.2) APTT 23.3 (22.0-30.0) sec Sodium (137-145) mmol/L Potassium (3.5-5.1) mmol/L Chloride (98-107) mmol/L Carbon Dioxide (22-30) mmol/L Anion Gap mmol/L BUN (7-17) mg/dL Creatinine (0.52-1.04) mg/dL Est GFR (MDRD) Af Amer (>60 ml/min/1.73 sqM) Est GFR (MDRD) Non-Af (>60 ml/min/1.73 sqM) Glucose (74-99) mg/dL Calcium (8.4-10.2) mg/dL Magnesium (1.6-2.3) mg/dL Total Bilirubin (0.2-1.3) mg/dL AST (14-36) U/L ALT (9-52) U/L Alkaline Phosphatase (38-126) U/L Total Creatine Kinase (30-135) U/L CK-MB (CK-2) (0.0-2.4) ng/mL CK-MB (CK-2) Rel Index Troponin I (0.000-0.034) ng/mL Total Protein (6.3-8.2) g/dL Albumin (3.5-5.0) g/dL Amylase (30-110) U/L Lipase (23-300) U/L - Radiology Data Radiology results: image reviewed (Chest x-ray shows no acute process) Disposition Clinical Impression: Chest pain Disposition: ADMITTED IP TO THIS [facility] Referrals: Chantelle Simpson MD [Primary Care Provider] - 1-2 days Decision Time: 21:33
[2017-08-27 19:42] LABS: Basophils # (A) 0.1 k/uL (0-0.2); Basophils % (A) 1 %; Eosinophils # (A) 0.1 k/uL (0-0.7); Eosinophils % (A) 1 %; HCT 49.4 % (34.0-46.0); HGB 15.9 gm/dL (11.4-16.0); Lymphocytes # (A) 1.9 k/uL (1.0-4.8); Lymphocytes % (A) 24 %; MCHC 32.1 g/dL (31.0-37.0); MCV 93.7 fL (80.0-100.0); Mean Platelet Volume 7.6; Monocytes # (A) 0.5 k/uL (0-1.0); Monocytes % (A) 6 %; Neutrophils # (A) 5.4 k/uL (1.3-7.7); Neutrophils % (A) 67 %; Platelet Count 284 k/uL (150-450); RBC 5.28 m/uL (3.80-5.40); RDW 14.8 % (11.5-15.5)
[2017-08-27] MEDS ORDERED: FAMOTIDINE 20 MG/2 ML VIAL IV STA (19:50)
[2017-08-27] MEDS ORDERED: ONDANSETRON 4 MG/2 ML VIAL IVP STA (19:50)
[2017-08-27 19:54] LABS: Partial Thromboplastin Time 23.3 sec (22.0-30.0)
[2017-08-27 19:58] LABS: Creatine Kinase 40 U/L (30-135)
[2017-08-27 20:01] LABS: ALT 27 U/L (9-52); AST 26 U/L (14-36); Albumin 3.9 g/dL (3.5-5.0); Alkaline Phosphatase 91 U/L (38-126); Amylase 106 U/L (30-110); Anion Gap 9 mmol/L; Blood Urea Nitrogen 15 mg/dL (7-17); Calcium 9.6 mg/dL (8.4-10.2); Carbon Dioxide 20 mmol/L (22-30); Chloride 108 mmol/L (98-107); Glucose 97 mg/dL (74-99); Lipase 167 U/L (23-300); Magnesium 2.1 mg/dL (1.6-2.3); Sodium 137 mmol/L (137-145); Total Bilirubin 0.9 mg/dL (0.2-1.3)
[2017-08-27 20:11] LABS: Creatine Kinase MB <0.2 ng/mL (0.0-2.4); Troponin I <0.012 ng/mL (0.000-0.034)
[2017-08-27 20:12] LABS: Potassium 4.1 mmol/L (3.5-5.1)
[2017-08-27 20:20] LABS: INR 1.1 (<1.2); Prothrombin Time 10.4 sec (9.0-12.0)
--- NOTE | 2017-08-27 20:43 | XR ---
EXAMINATION: XR chest 2V DATE AND TIME: 08/27/2017 8:22 PM ORDERING PROVIDER: Jorden Nguyen DO CLINICAL INDICATION: Chest Pain TECHNIQUE: PA and lateral COMPARISON: 08/19/2017 DESCRIPTION: The lungs are clear. The pleural spaces are negative. The cardiac silhouette is moderately enlarged, unchanged. The mediastinal and pleural silhouettes are unremarkable. The skeletal structures are intact without focal findings. The soft tissues are prominent but are otherwise unremarkable. IMPRESSION: NO ACUTE PROCESS.
[2017-08-27] MEDS ORDERED: NITROGLYCERIN SL TABS 0.4 MG TAB SUBLINGUAL PRN (21:34)
[2017-08-27 22:39] VITALS: BMI 41.5
[2017-08-28 01:11] LABS: Creatine Kinase 37 U/L (30-135)
[2017-08-28] MEDS ORDERED: LORazepam 1 MG TAB PO PRN (01:24)
[2017-08-28 01:26] LABS: Creatine Kinase MB 0.4 ng/mL (0.0-2.4); Troponin I <0.012 ng/mL (0.000-0.034)
[2017-08-28] MEDS: NITROGLYCERIN OINT 1 INCH/GM PACKET TOPICAL SCH ×2 (01:29→06:02)
[2017-08-28] MEDS ORDERED: PANTOPRAZOLE 40 MG/10 ML VIAL IVP SCH (06:00)
[2017-08-28 06:45] LABS: Cholesterol 155 mg/dL (<200); HDL Cholesterol 49 mg/dL (40-60); LDL Cholesterol,Calculated 85 mg/dL (0-99); Triglycerides 104 mg/dL (<150)
[2017-08-28 06:55] LABS: Creatine Kinase 27 U/L (30-135)
[2017-08-28 07:07] LABS: Creatine Kinase MB 0.3 ng/mL (0.0-2.4); Troponin I <0.012 ng/mL (0.000-0.034)
[2017-08-28] MEDS ORDERED: amLODIPine 10 MG TAB PO SCH (09:00)
[2017-08-28] MEDS ORDERED: LISINOPRIL 20 MG TAB PO SCH (09:00)
[2017-08-28] MEDS ORDERED: ASPIRIN 325 MG TAB PO SCH (09:00)
--- NOTE | 2017-08-28 11:04 | P.CRDCN ---
History of Present Illness Consult date: 08/28/17 Requesting physician: Claudia Wise Consult reason: chest pain Chief complaint: Epigastric discomfort History of present illness: This is a pleasant 76-year-old female with history of hypertension, obesity, anxiety, who presents to the hospital with symptoms of epigastric discomfort. Patient has been experiencing symptoms in the epigastric and abdominal area since July of this year, she's had multiple visits to the emergency room, she's also had one admission to the hospital at which time cardiology consultation was requested. She was advised at that time to undergo dobutamine echocardiographic study which she refused at that time. Patient did have an echocardiogram with Doppler study performed on that visit which revealed an ejection fraction of 55-60% with borderline concentric LVH. Cardiology consultation is again requested on this visit because at times patient's discomfort is up in the chest area as well. EKG done on admission shows normal sinus rhythm with nonspecific ST-T wave changes in the inferior and anterior leads. Upon review of prior EKGs, similar changes were noted. Chest x-ray does not reveal any acute process. White blood cell count is normal , hemoglobin 15.9, platelet count 284. Potassium 4.1, BUN 15, creatinine 0.7. Troponins are negative 3. Patient does state that she scheduled to follow-up with GI as an outpatient on September 11. Blood pressure 125/60 with a heart rate in the 50s, 98% on room air. She is afebrile. Complaining of mild epigastric burning this morning. Past Medical History Past Medical History: Hypertension, Osteoarthritis (OA) Additional Past Medical History / Comment(s): Nephrolithiasis, nephritis, UTI, bronchitis, pleurisy, arthritis R shoulder L knee and L hip (had hip surgery). History of Any Multi-Drug Resistant Organisms: None Reported Past Surgical History: Joint Replacement Additional Past Surgical History / Comment(s): oral Additional Past Anesthesia/Blood Transfusion Reaction / Comment(s): Pt states post op day1 after hip surgery she had hallucinations. Past Psychological History: Anxiety Additional Psychological History / Comment(s): Pt resides alone. She is independent. She uses a cane prn. Smoking Status: Never smoker Past Alcohol Use History: None Reported Past Drug Use History: None Reported - Past Family History Mother Family Medical History: Hypertension Additional Family Medical History / Comment(s): Mother lived to be 93 or 94yrs old. Father Additional Family Medical History / Comment(s): Father at the age of 64 yrs. Pt unsure of father's medical hx. Medications and Allergies Home Medications Medication Instructions Recorded Confirmed Type Aspirin 81 mg PO DAILY 07/15/17 08/27/17 History amLODIPine BESYLATE/BENAZEPRIL 1 cap PO DAILY 07/15/17 08/27/17 History [Lotrel 10-20 mg Capsule] Cephalexin [Keflex] 2,000 mg PO DIRECTED PRN 08/15/17 08/27/17 History Sertraline HCl [Zoloft] 25 mg PO DAILY@1200 08/15/17 08/27/17 History Allergies Allergy/AdvReac Type Severity Reaction Status Date / Time animal dander Allergy Unknown Verified 08/27/17 18:39 iodine Allergy Anaphylaxis Verified 08/27/17 18:39 shellfish derived [Shellfish] Allergy Anaphylaxis Verified 08/27/17 18:39 sulfamethoxazole Allergy Unknown Verified 08/27/17 18:39 [From Bactrim] trimethoprim [From Bactrim] Allergy Unknown Verified 08/27/17 18:39 Physical Exam Vitals: Vital Signs Temp Pulse Pulse Resp BP BP Pulse Ox 08/28/17 08:00 97 F L 54 L 18 125/61 98 08/28/17 04:00 97.7 F 66 18 119/54 96 08/28/17 00:00 97.0 F L 66 18 120/59 97 08/27/17 21:55 96.9 F L 60 18 130/81 98 08/27/17 21:42 64 18 115/55 99 08/27/17 19:34 62 18 132/62 100 08/27/17 18:45 98.7 F 65 18 157/70 100 Intake and Output 08/27/17 08/28/17 08/28/17 22:59 06:59 14:59 Intake Total 60 10 Balance 60 10 Intake: IV 10 10 0.9 10 10 Amount of Fluid Infused ( 50 ml) Other: Voiding Method Toilet Toilet Weight 99.79 kg 102.3 kg PHYSICAL EXAMINATION: GENERAL: This is a 76-year-old female in no apparent distress at the time of my examination. Morbidly obese. HEENT: Head is atraumatic, normocephalic. Pupils equal, round. Sclera anicteric. Neck is supple. There is no elevated jugular venous pressure. HEART EXAMINATION: Heart S1, S2 normal. No murmur or gallop heard. CHEST EXAMINATION: Lungs are clear to auscultation and precussion. No chest wall tenderness is noted on palpation or with deep breathing. ABDOMEN: Soft, obese, mild epigastric tenderness . Bowel sounds are heard. No organomegaly noted. EXTREMITIES: 2+ peripheral pulses with no evidence of peripheral edema and no calf tenderness noted. NEUROLOGIC patient is awake, alert and oriented -3. . Results 08/27/17 18:58 08/27/17 18:58 Cardiac Enzymes 08/27/17 08/27/17 08/28/17 Range/Units 18:58 18:58 00:17 AST 26 (14-36) U/L CK-MB (CK-2) <0.2 0.4 (0.0-2.4) ng/mL Troponin I <0.012 <0.012 (0.000-0.034) ng/mL 08/28/17 Range/Units 06:00 AST (14-36) U/L CK-MB (CK-2) 0.3 (0.0-2.4) ng/mL Troponin I <0.012 (0.000-0.034) ng/mL Coagulation 08/27/17 Range/Units 18:58 PT 10.4 (9.0-12.0) sec APTT 23.3 (22.0-30.0) sec Lipids 08/28/17 Range/Units 06:00 Triglycerides 104 (<150) mg/dL Cholesterol 155 (<200) mg/dL HDL Cholesterol 49 (40-60) mg/dL CBC 08/27/17 Range/Units 18:58 WBC 8.0 (3.8-10.6) k/uL RBC 5.28 (3.80-5.40) m/uL Hgb 15.9 (11.4-16.0) gm/dL Hct 49.4 H (34.0-46.0) % Plt Count 284 (150-450) k/uL Comprehensive Metabolic Panel 08/27/17 Range/Units 18:58 Sodium 137 (137-145) mmol/L Potassium 4.1 (3.5-5.1) mmol/L Chloride 108 H (98-107) mmol/L Carbon Dioxide 20 L (22-30) mmol/L BUN 15 (7-17) mg/dL Creatinine 0.77 (0.52-1.04) mg/dL Glucose 97 (74-99) mg/dL Calcium 9.6 (8.4-10.2) mg/dL AST 26 (14-36) U/L ALT 27 (9-52) U/L Alkaline Phosphatase 91 (38-126) U/L Total Protein 7.0 (6.3-8.2) g/dL Albumin 3.9 (3.5-5.0) g/dL Current Medications Generic Name Dose Route Start Last Admin Trade Name Freq PRN Reason Stop Dose Admin Amlodipine Besylate 10 mg 08/28/17 09:00 08/28/17 08:41 Norvasc PO 10 mg DAILY MANJU Administration Aspirin 325 mg 08/28/17 09:00 08/28/17 08:41 Aspirin PO 325 mg DAILY MANJU Administration Lisinopril 20 mg 08/28/17 09:00 08/28/17 08:42 Zestril PO 20 mg DAILY [facility] Administration Lorazepam 1 mg 08/28/17 01:24 Ativan PO HS PRN Insomnia Nitroglycerin 1 inch 08/28/17 01:00 08/28/17 06:02 Nitro-Bid Oint TOPICAL 1 inch Q6HR MANJU Administration Nitroglycerin 0.4 mg 08/27/17 21:34 Nitrostat SUBLINGUAL Q5M PRN Chest Pain Pantoprazole Sodium 40 mg 08/28/17 06:00 08/28/17 06:00 Protonix IVP 40 mg 0600 [facility] Administration Sertraline HCl 25 mg 08/28/17 12:00 Zoloft PO DAILY@1200 [facility] Intake and Output 08/27/17 08/28/17 08/28/17 22:59 06:59 14:59 Intake Total 60 10 Balance 60 10 Intake: IV 10 10 0.9 10 10 Amount of Fluid Infused ( 50 ml) Other: Voiding Method Toilet Toilet Weight 99.79 kg 102.3 kg 08/27/17 18:58 08/27/17 18:58 EKG Interpretations (text) EKG shows normal sinus rhythm with nonspecific ST-T wave changes in the anterior leads. Assessment and Plan Plan: Assessment and plan #1 chest discomfort, atypical for acute coronary syndrome, appears to be located more in the epigastric region. Troponins negative 3. EKG shows normal sinus rhythm with nonspecific ST-T wave changes in the anterior leads. Echocardiogram with Doppler study performed in July revealed an ejection fraction of 55-60% with borderline concentric LVH. #2 hypertension #3 hyperlipidemia #4 persistent abdominal and epigastric discomfort and burning, recent ultrasound of the abdomen revealed hepatic fatty infiltration with no evidence of cholelithiasis or gallbladder wall thickening. Recent CT of the abdomen revealed probable tiny hepatic cysts. Diverticulosis without acute diverticulitis. Patient is scheduled to see Dr. Adela Walls as an outpatient on September 11. Plan We'll discontinue the Nitropaste, decrease aspirin to 81 mg daily, patient has been advised to undergo dobutamine echocardiographic study which she is willing to proceed with on this admission. GI workup in progress. Further recommendations will be based on these findings and patient's clinical course. DNP note has been reviewed, I agree with a documented findings and plan of care. Patient was seen and examined.
[2017-08-28] MEDS ORDERED: DOBUTamine DRIP for NUC MED 500 MG in DEXTROSE/WATER 1 250ML.BAG IV ONE (11:17)
[2017-08-28] MEDS ORDERED: AMINOPHYLLINE 500 MG/20 ML VIAL IV PRN (11:21)
[2017-08-28] MEDS ORDERED: REGADENOSON 0.4 MG/5 ML SYRINGE IV ONE (11:21)
[2017-08-28] MEDS ORDERED: SERTRALINE 25 MG TAB PO SCH (12:00)
[2017-08-28 12:16] VITALS: BP 110/57; PULSE 66; TEMP 97.3
--- NOTE | 2017-08-28 14:20 | NM ---
EXAMINATION TYPE: NM stress lexiscan cardiolite DATE OF EXAM: 08/28/2017 COMPARISON: NONE HISTORY: Chest pain TECHNIQUE: After the intravenous administration of 11.0 mCi Tc 99m Sestamibi - Cardiolite resting SP ECT images acquired 45 minutes post injection. The patient received 0.4mg Lexiscan, 25.1 mCi Tc 99m Sestamibi - Stress images obtained [address] injection FINDINGS: Review of stress and rest SPECT images demonstrates no distinct perfusion abnormality. Gated analysi s shows normal wall motion with an estimated left ventricular ejection fraction of 70 %. TID within n ormal limits calculated at 0.91. IMPRESSION: 1. No scintigraphic evidence for reversible ischemia. 2. Normal ejection fraction of 70%.
--- NOTE | 2017-08-28 14:43 | EST ---
EXERCISE STRESS AGE: 76 SEX: F HT: 5'1" WT: 220 PROTOCOL: Lexiscan Cardiolite Stress Test HEART RATE REST: 59 BLOOD PRESSURE REST: 136/77 MAXIMUM HEART RATE ACHIEVED: 95 MAXIMUM BLOOD PRESSURE: 160/72 85% MPHR: 124 100% MPHR: 146 CLINICAL INFORMATION: Baseline EKG revealed normal sinus rhythm with a left anterior fascicular block, nonspecific ST and T-wave leads in inferior as well as anterior leads. There is poor R- wave progression noted. With Lexiscan administration, the heart rate changed from 59 to 95 beats per minute. Blood pressure changed from 136/77 to 160/72. Patient was asymptomatic. EKG remained inconclusive and unchanged. By EKG criteria, this is an inconclusive Lexiscan stress test because of resting EKG changes. The nuclear scan results which are more pertinent, will be reported by the radiologist. SENTHIL / KRISTOPHER: [id number] /
--- NOTE | 2017-08-28 16:04 | P.DS ---
Providers Date of admission: 08/27/17 21:34 Attending physician: Claudia Wise Consults: 08/27/17 21:34 Consult Physician Routine Consulting Provider: Umm Walls Consult Reason/Comments: Chest pain, rule out gastric Do you want consulting provider notified?: Yes Consult Physician Urgent Consulting Provider: Esteban Longo Consult Reason/Comments: cp Do you want consulting provider notified?: Yes Primary care physician: Chantelle Simpson [facility] Course: Please refer to my HPI Plan - Discharge Summary Discharge Rx Participant: No New Discharge Prescriptions: New Omeprazole [PriLOSEC] 20 mg PO AC-BID #30 cap ALPRAZolam [Xanax] 0.25 mg PO TID PRN #20 tab PRN Reason: Anxiety Continue Aspirin 81 mg PO DAILY Sertraline HCl [Zoloft] 25 mg PO DAILY@1200 Cephalexin [Keflex] 2,000 mg PO DIRECTED PRN PRN Reason: DENTAL APPOINTMENTS Changed amLODIPine BESYLATE/BENAZEPRIL [Lotrel 10-20 mg Capsule] 0.5 cap PO DAILY #0 Discharge Medication List Aspirin 81 mg PO DAILY 07/15/17 [History] Cephalexin [Keflex] 2,000 mg PO DIRECTED PRN 08/15/17 [History] Sertraline HCl [Zoloft] 25 mg PO DAILY@1200 08/15/17 [History] ALPRAZolam [Xanax] 0.25 mg PO TID PRN #20 tab 08/28/17 [Rx] Omeprazole [PriLOSEC] 20 mg PO AC-BID #30 cap 08/28/17 [Rx] amLODIPine BESYLATE/BENAZEPRIL [Lotrel 10-20 mg Capsule] 0.5 cap PO DAILY #0 [Rx] Follow up Appointment(s)/Referral(s): Chantelle Simpson MD [Primary Care Provider] - 08/29/17 2:30 pm Umm Walls MD [STAFF PHYSICIAN] - 09/11/17 1:00 pm (Previous scheduled appointment.) Patient Instructions/Handouts: Chest Pain (DC) Discharge Disposition: HOME SELF-CARE
--- NOTE | 2017-08-28 16:04 | P.HPIM ---
History of Present Illness 76-year-old female with history of hypertension, obesity, anxiety, who presents to the hospital with symptoms of epigastric discomfort. Patient has been experiencing symptoms in the epigastric and abdominal area since July of this year, she's had multiple visits to the emergency room, she's also had one admission to the hospital at which time cardiology consultation was requested. She was advised at that time to undergo dobutamine echocardiographic study which she refused at that time. Patient did have an echocardiogram with Doppler study performed on that visit which revealed an ejection fraction of 55-60% with borderline concentric LVH. Cardiology consultation is again requested on this visit because at times patient's discomfort is up in the chest area as well. EKG done on admission shows normal sinus rhythm with nonspecific ST-T wave changes in the inferior and anterior leads. Upon review of prior EKGs, similar changes were noted. C patient chest pain is mostly associated with food epigastric and burning sensation patient does have a competent of anxiety as well patient will be discharged on Xanax along with the SSRI for her anxiety, patient is already on antidepressant for anxiety. Patient will be given Prilosec twice a day for 14 days and follow up with Dr. Walls for possible upper GI endoscopy as an outpatient. had a negative stress test today Review of Systems REVIEW OF SYSTEMS: CONSTITUTIONAL: No fever, no malaise, no fatigue. HEENT: No recent visual problems or hearing problems. Denied any sore throat. CARDIOVASCULAR: No orthopnea, PND, no palpitations, no syncope. PULMONARY: No shortness of breath, no cough, no hemoptysis. GASTROINTESTINAL: No diarrhea, no nausea, no vomiting, Normoactive bowel sounds. NEUROLOGICAL: No headaches, no weakness, no numbness. HEMATOLOGICAL: Denies any bleeding or petechiae. GENITOURINARY: Denies any burning micturition, frequency, or urgency. MUSCULOSKELETAL/RHEUMATOLOGICAL: Denies any joint pain, swelling, or any muscle pain. ENDOCRINE: Denies any polyuria or polydipsia. The rest of the 14-point review of systems is negative. Past Medical History Past Medical History: Hypertension, Osteoarthritis (OA) Additional Past Medical History / Comment(s): Nephrolithiasis, nephritis, UTI, bronchitis, pleurisy, arthritis R shoulder L knee and L hip (had hip surgery). History of Any Multi-Drug Resistant Organisms: None Reported Past Surgical History: Joint Replacement Additional Past Surgical History / Comment(s): oral Additional Past Anesthesia/Blood Transfusion Reaction / Comment(s): Pt states post op day1 after hip surgery she had hallucinations. Past Psychological History: Anxiety Additional Psychological History / Comment(s): Pt resides alone. She is independent. She uses a cane prn. Smoking Status: Never smoker Past Alcohol Use History: None Reported Past Drug Use History: None Reported - Past Family History Mother Family Medical History: Hypertension Additional Family Medical History / Comment(s): Mother lived to be 93 or 94yrs old. Father Additional Family Medical History / Comment(s): Father at the age of 64 yrs. Pt unsure of father's medical hx. Medications and Allergies Home Medications Medication Instructions Recorded Confirmed Type Aspirin 81 mg PO DAILY 07/15/17 08/27/17 History Cephalexin [Keflex] 2,000 mg PO DIRECTED PRN 08/15/17 08/27/17 History Sertraline HCl [Zoloft] 25 mg PO DAILY@1200 08/15/17 08/27/17 History ALPRAZolam [Xanax] 0.25 mg PO TID PRN #20 tab 08/28/17 Rx Omeprazole [PriLOSEC] 20 mg PO AC-BID #30 cap 08/28/17 Rx amLODIPine BESYLATE/BENAZEPRIL 0.5 cap PO DAILY #0 08/28/17 08/27/17 Rx [Lotrel 10-20 mg Capsule] Allergies Allergy/AdvReac Type Severity Reaction Status Date / Time animal dander Allergy Unknown Verified 08/27/17 18:39 iodine Allergy Anaphylaxis Verified 08/27/17 18:39 shellfish derived [Shellfish] Allergy Anaphylaxis Verified 08/27/17 18:39 sulfamethoxazole Allergy Unknown Verified 08/27/17 18:39 [From Bactrim] trimethoprim [From Bactrim] Allergy Unknown Verified 08/27/17 18:39 Physical Exam Vitals: Vital Signs Temp Pulse Pulse Resp BP BP Pulse Ox 08/28/17 12:00 97.3 F L 66 18 110/57 96 08/28/17 08:00 97 F L 54 L 18 125/61 98 08/28/17 04:00 97.7 F 66 18 119/54 96 08/28/17 00:00 97.0 F L 66 18 120/59 97 12/26/17 21:55 96.9 F L 60 18 130/81 98 08/27/17 21:42 64 18 115/55 99 08/27/17 19:34 62 18 132/62 100 08/27/17 18:45 98.7 F 65 18 157/70 100 Intake and Output 08/28/17 08/28/17 08/28/17 06:59 14:59 22:59 Intake Total 10 Balance 10 Intake: IV 10 0.9 10 Other: Voiding Method Toilet Toilet # Voids 1 Weight 102.3 kg PHYSICAL EXAMINATION: GENERAL: The patient is alert and oriented x3, not in any acute distress. Well developed, well nourished. HEENT: Pupils are round and equally reacting to light. EOMI. No scleral icterus. No conjunctival pallor. Normocephalic, atraumatic. No pharyngeal erythema. No thyromegaly. CARDIOVASCULAR: S1 and S2 present. No murmurs, rubs, or gallops. PULMONARY: Chest is clear to auscultation, no wheezing or crackles. ABDOMEN: Soft, nontender, nondistended, normoactive bowel sounds. No palpable organomegaly. MUSCULOSKELETAL: No joint swelling or deformity. EXTREMITIES: No cyanosis, clubbing, or pedal edema. NEUROLOGICAL: Gross neurological examination did not reveal any focal deficits. SKIN: No rashes. Results CBC & Chem 7: 08/27/17 18:58 08/27/17 18:58 Labs: Abnormal Lab Results - Last 24 Hours (Table) 08/27/17 08/27/17 08/28/17 Range/Units 18:58 18:58 06:00 Hct 49.4 H (34.0-46.0) % Chloride 108 H (98-107) mmol/L Carbon Dioxide 20 L (22-30) mmol/L Total Creatine Kinase 27 L (30-135) U/L Thrombosis Risk Factor Assmnt - Choose All That Apply Any of the Below Risk Factors Present?: No Other Risk Factors: Yes Each Risk Factor Represents 2 Points: Age 61-74 years Other congenital or acquired thrombophilia - If yes, enter type in comment: No Thrombosis Risk Factor Assessment Total Risk Factor Score: 2 Thrombosis Risk Factor Assessment Level: Low Risk Assessment and Plan Plan: 1 chest pain and epigastric abdominal pain burning sensation most probably secondary to stress ulcers from her anxiety or gastritis patient will be started on twice a day proton pulmonary millimeter. -Ruled out acute coronary syndromes unstable angina -Anxiety disorder management as mentioned above -Hypertension -Osteoarthritis
== END 2017-08-28 15:40 | disposition home or self-care (01) ==
LOC: EC 18:36 → 6SEL 21:34
PROVIDERS: ADMIT Internal Medicine; ATTEND Internal Medicine
DX: R07.89 Other chest pain (principal); I10 Essential (primary) hypertension; M19.90 Unspecified osteoarthritis, unspecified site; E66.01 Morbid (severe) obesity due to excess calories; M19.011 Primary osteoarthritis, right shoulder; F41.9 Anxiety disorder, unspecified; E78.5 Hyperlipidemia, unspecified; K57.90 Diverticulosis of intestine, part unspecified, without perforation or abscess without bleeding; Z79.899 Other long term (current) drug therapy; Z79.82 Long term (current) use of aspirin; Z88.2 Allergy status to sulfonamides; Z88.3 Allergy status to other anti-infective agents; Z91.013 Allergy to seafood; Z87.442 Personal history of urinary calculi; Z87.440 Personal history of urinary (tract) infections; Z82.49 Family history of ischemic heart disease and other diseases of the circulatory system; Z68.41 Body mass index [BMI] 40.0-44.9, adult; R10.13 Epigastric pain
CPT/HCPCS: 96375 ×2; 96374; 99285; 36415; 93005; 93017; 80061; 80053; 82150; 82550 ×2; 82553 ×2; 83690; 83735; 84484 ×2; 85025; 85610; 85730; 71020; 78452; G0378 ×2; A9500; J2405; J2785; C9113

== ENCOUNTER 2017-09-19 10:19 | Day surgery (SDC) | payer MEDICARE ==
[~2017-09-19 10:19] MED LIST: LACTATED RINGERS 1,000 ML IV SCH; LIDOCAINE 1% 20 ML VIAL (10MG/ML) FOR IV START INTRADERMA PRN
[2017-09-19 11:13] VITALS: RESP 16; TEMP 98.5
[2017-09-19] MEDS ORDERED: PROPOFOL 10 MG/ML 20 ML VIAL IV ONE (11:35)
--- NOTE | 2017-09-19 12:02 | P.PCN ---
Date of Procedure: 09/19/17 Procedure(s) Performed: Brief history: Patient is a pleasant 76-year-old white female, scheduled for an elective upper endoscopy as well as colonoscopy as a part of evaluation of abdominal pain, was in the epigastric area, intermittent flushing episodes and change in bowel habits. His loose watery bowel movements daily but denies any blood or mucus in the stool. Procedure performed: Esophagogastroduodenoscopy with biopsy Colonoscopy with biopsy and snare polypectomy Preoperative diagnosis: Epigastric pain Change in bowel habits Anesthesia: MAC Procedure: After informed consent was obtained from the patient was brought into the endoscopy unit and IV sedation was administered by anesthesia under continuous monitoring. Initially upper endoscopy was done. The Olympus GF 160 video endoscope was inserted inserted into the mouth and esophagus intubated without any difficulty and was gradually advanced into the stomach and duodenum and carefully examined. The bulb and second part of the duodenum appeared normal. Biopsies were done from the duodenum to rule out celiac disease. The scope was then withdrawn into the stomach adequately insufflated with air and upon careful examination the antrum had scattered erosions and biopsies were done from this area. The body, cardia and fundus appeared normal. The scope was then withdrawn into the esophagus. The GE junction was located at 40 cm to the incisors. It appeared regular with no erythema erosions or ulcerations. Rest of the esophagus appeared normal. Patient tolerated the procedure well. At this time the patient continued to remain sedation. Initial digital rectal examination was normal. Olympus CF 160 video colonoscope was then inserted into the rectum and gradually advanced to the cecum without any difficulty. Careful examination was performed as the scope was gradually being withdrawn. The prep was excellent. The cecum, ascending colon, appeared normal. In the hepatic flexure there was a 3-4 cm submucosal lipoma identified. In the transverse colon there was a 5 mm polyp that was removed by biopsy. In the descending colon there were 2 polyps measuring 7 mm in size both of which were removed by snare polypectomy. The rest of the transverse colon, descending colon, sigmoid colon and rectum appeared normal. scattered diffuse diverticulosis seen. Random biopsies were also done from ascending and descending colon to rule out microscopic/collagenous colitis. Retroflexion was performed in the rectum and no lesions were noted. Patient tolerated the procedure well. Impression: 1. Upper Endoscopy revealed mild antral gastritis and scattered erosions in the antrum. 2. Colonoscopy revealed 5 mm transverse colon polyp status post removal by biopsy and 7 mm 2 descending colon polyp status post polypectomy. Recommendations: Findings of this examination were discussed with the patient as well as her family. She was advised to follow with the biopsy results. She will continue with her current medications and she'll be seen in the office in 2 weeks.
[2017-09-19 12:24] VITALS: BP 88/58; PULSE 72
--- NOTE | 2017-09-24 07:35 | CDI ---
Date: 09/19/17 CDS/Decal Decorator Name: Meenakshi Hall Phone: If you have question, contact Elizabeth Martin Resident Service Coordinator at M-F 8:30 am to 6pm. Patient Name: Adela Mcgrath Admit Date: 09/19/17 Discharge Date: 09/19/17 ATTENTION: The Clinical Documentation Specialists (CDI) and [facility] Coding Staff appreciate your assistance in clarifying documentation. Please respond to the clarification below the line at the bottom and electronically sign. The CDI & [facility] Coding staff will review the response and follow-up if needed. Please note: Queries are made part of the Legal Health Record. If you have any questions, please contact the author of this message via ITS or call the Resident Service Coordinator. Dr. Walls Please provide clarification as to how the transverse colon polyp was removed. Please specify hot or cold biopsy. Thank you for your assistance. polyp was removed by cold biopsy [id number]
== END 2017-09-19 13:15 | disposition home or self-care (01) ==
LOC: ORWHC2ENDO 10:19
PROVIDERS: ATTEND Internal Medicine Gastroenterology
DX: D12.4 Benign neoplasm of descending colon (principal); K63.5 Polyp of colon; K62.1 Rectal polyp; K57.30 Diverticulosis of large intestine without perforation or abscess without bleeding; K25.9 Gastric ulcer, unspecified as acute or chronic, without hemorrhage or perforation; K21.9 Gastro-esophageal reflux disease without esophagitis; D17.79 Benign lipomatous neoplasm of other sites; I10 Essential (primary) hypertension; Z79.82 Long term (current) use of aspirin; Z79.899 Other long term (current) drug therapy; Z88.2 Allergy status to sulfonamides; Z88.8 Allergy status to other drugs, medicaments and biological substances
CPT/HCPCS: 88305; 88342; 45380; 45385; 43239; J2704

== ENCOUNTER 2018-09-23 16:53 | Emergency (ER) | payer MEDICARE ==
--- NOTE | 2018-09-23 19:32 | XR ---
PROCEDURE: XR Hip LT and AP Pelvis - 3V DATE AND TIME: 09/23/2018 7:27 PM CLINICAL INDICATION: PHH; Pain TECHNIQUE: Department protocol COMPARISON: None FINDINGS: The left hip orthopedic hardware is intact, without periprosthesis lucencies. There is no left hip fracture or malalignment. The soft tissues are unremarkable. No other fractures. IMPRESSION: NO ACUTE PROCESS.
[2018-09-23] MEDS ORDERED: MORPHINE SULFATE 4 MG/ML SYRINGE IV STA (19:44)
[2018-09-23] MEDS ORDERED: ETOMIDATE 2 MG/ML 10 ML VIAL IVP STA (19:47)
--- NOTE | 2018-09-23 19:58 | ED ---
General Adult HPI <Jorden Nguyen - Last Filed: 09/23/18 20:39> - General Source: patient, RN notes reviewed, old records reviewed Mode of arrival: ambulatory Limitations: no limitations <Bola Gimenez - Last Filed: 09/23/18 21:10> - General Chief complaint: Fall Stated complaint: Fell/lt side pain Time Seen by Provider: 09/23/18 17:54 - History of Present Illness Initial comments: 37-year-old female patient past medical history of hypertension presents to ED after she sustained a mechanical fall, slipping on her wet floor. Patient states that she is able to control her fall, fell down slowly onto her left shoulder. Patient primary complaint is left shoulder pain. Patient not on any blood thinners. Patient denies any trauma to head or neck. Patient ambulatory. Patient has any other complaints, denies chest pain, shortness breath, abdominal pain, nausea vomiting diarrhea. Systemic: Pt denies fatigue, myalgia, fever/chills, rash. Pt denies weakness, night sweats, weight loss. Neuro: Pt denies headache, visual disturbances, syncope or pre-syncope. HEENT: Pt denies ocular discharge or irritation, otalgia, rhinorrhea, pharyngitis or notable lymphadenopathy. Cardiopulmonary: Pt denies chest pain, SOB, heart palpitations, dyspnea on exertion. Abdominal/GI: Pt denies abdominal pain, n/v/d. : Pt denies dysuria, burning w/ urination, frequency/urgency. Denies new onset urinary or bowel incontinence. MSK: Pt denies myalgia, loss of strength or function in extremities. Neuro: Pt denies new onset weakness, paresthesias. (Bola Gimenez) - Related Data Home Medications Medication Instructions Recorded Confirmed Sertraline HCl [Zoloft] 25 mg PO QAM 08/15/17 09/23/18 amLODIPine BESYLATE/BENAZEPRIL 1 cap PO QAM 09/17/17 09/23/18 [Lotrel 10-20 MG] Omeprazole [PriLOSEC] 20 mg PO DAILY 09/23/18 09/23/18 Allergies Allergy/AdvReac Type Severity Reaction Status Date / Time animal dander Allergy Unknown Verified 09/23/18 20:33 iodine Allergy Anaphylaxis Verified 09/23/18 20:33 shellfish derived [Shellfish] Allergy Anaphylaxis Verified 09/23/18 20:33 sulfamethoxazole Allergy Unknown Verified 09/23/18 20:33 [From Bactrim] trimethoprim [From Bactrim] Allergy Unknown Verified 09/23/18 20:33 Review of Systems ROS Other: All systems not noted in ROS Statement are negative. <Jorden Nguyen - Last Filed: 09/23/18 20:39> ROS Other: All systems not noted in ROS Statement are negative. <Bola Gimenez - Last Filed: 09/23/18 21:10> ROS Statement: Those systems with pertinent positive or pertinent negative responses have been documented in the HPI. Past Medical History Past Medical History: Hypertension, Osteoarthritis (OA) Additional Past Medical History / Comment(s): 08/27/17 IP WITH CP. Nephrolithiasis, nephritis, UTI, bronchitis, pleurisy, arthritis R shoulder L knee and L hip (had hip surgery). PRE-OP KEFLEX FOR DENTAL/IMPLANTS History of Any Multi-Drug Resistant Organisms: None Reported Past Surgical History: Joint Replacement Additional Past Surgical History / Comment(s): LEFT TOTAL HIP. EXT OF KIDNEY STONE. Additional Past Anesthesia/Blood Transfusion Reaction / Comment(s): Pt states post op day1 after hip surgery she had hallucinations. Past Psychological History: Anxiety Smoking Status: Never smoker Past Alcohol Use History: None Reported Past Drug Use History: None Reported - Past Family History Mother Family Medical History: Hypertension Additional Family Medical History / Comment(s): Mother lived to be 93 or 94yrs old. Father Additional Family Medical History / Comment(s): Father at the age of 64 yrs. Pt unsure of father's medical hx. <Bola Gimenez - Last Filed: 09/23/18 21:10> General Exam <Jorden Nguyen - Last Filed: 09/23/18 20:39> Limitations: no limitations <Bola Gimenez - Last Filed: 09/23/18 21:10> - General Exam Comments Initial Comments: Constitutional: NAD, AOX3, Pt has pleasant affect. HEENT: NC/AT, trachea midline, neck supple, no lymphadenopathy. Posterior pharynx non erythematous, without exudates. External ears appear normal, without discharge. Mucous membranes moist. Eyes PERRLA, EOM intact. There is no scleral icterus. No pallor noted. Cardiopulmonary: RRR, no murmurs, rubs or gallops, no JVD noted. Lungs CTAB in anterior and posterior aguilera. No peripheral edema. Abdominal exam: Abdomen soft and non-distended. Abdomen non-tender to palpation in all 4 quadrants. Bowel sounds active in LLQ. No hepatosplenomegaly. No ecchymosis Neuro: CN II-XII grossly intact. No nuchal rigidity. MSK: L shoulder consistent with anterior dislocation. Radial pulse +2 bilaterally, pulses equal. No other tenderness in upper or lower extremities. Patient has full active range of motion lower extremities. Patient full active range of motion right upper extremity. Sensation intact. Pt neurovasculalry intact s/p reduction. No posterior calf tenderness bilaterally, homans sign negative bilaterally. Posterior tibialis and radial pulse +2 bilaterally. Sensation intact in upper and lower extremities. Full active ROM in upper and lower extremities, 5/5 stregnth. (Bola Gimenez) Vital Signs 09/23/18 09/23/18 09/23/18 17:32 20:13 20:20 Temperature 98.3 F Pulse Rate 82 93 Respiratory 18 80 H 21 Rate Blood Pressure 139/85 139/77 152/87 O2 Sat by Pulse 98 99 99 Oximetry 09/23/18 20:28 Temperature Pulse Rate 80 Respiratory 15 Rate Blood Pressure 152/87 O2 Sat by Pulse 97 Oximetry Procedures - Orthopedic Joint Reduction Joint #1 Consent Obtained: verbal consent Side: left Joint Reduction Location: shoulder Analgesia: procedural sedation Shoulder Technique Used (if applicable): traction/counter-traction Technique Used: traction/counter-traction Post-Reduction Neuro Exam: intact Post-Reduction Vascular Exam: intact Post Reduction X-Ray Obtained: Yes Post Reduction X-Ray Results: reduced Patient Tolerated Procedure: well, no complications - Procedural Sedation Procedural Sedation Start Time: 20:16 Procedural Sedation Stop Time: 20:39 Indications: fracture/dislocation reduction Preparation: nascar pit crew person applied, pulse oximeter, capnometry used, supplemental O2 applied IV Etomidate Dose (mgs): 15 Complications: none Patient Tolerated Procedure: well, no complications <Jorden Nguyen - Last Filed: 09/23/18 20:39> Medical Decision Making <Jorden Nguyen - Last Filed: 09/23/18 20:39> <Bola Gimenez - Last Filed: 09/23/18 21:10> - Medical Decision Making 37-year-old female patient past medical history of hypertension presents to ED after she sustained a mechanical fall, slipping on her wet floor. Patient states that she is able to control her fall, fell down slowly onto her left shoulder. Patient primary complaint is left shoulder pain. Patient not on any blood thinners. Patient denies any trauma to head or neck. Patient ambulatory. Patient has any other complaints, denies chest pain, shortness breath, abdominal pain, nausea vomiting diarrhea. Patient will signs stable, afebrile. Physical exam displayed: L shoulder consistent with anterior dislocation. Radial pulse +2 bilaterally, pulses equal. No other tenderness in upper or lower extremities. Patient has full active range of motion lower extremities. Patient full active range of motion right upper extremity. Sensation intact. Pt neurovasculalry intact s/p reduction. No posterior calf tenderness bilaterally, homans sign negative bilaterally. Posterior tibialis and radial pulse +2 bilaterally. Sensation intact in upper and lower extremities. Full active ROM in upper and lower extremities, 5/5 stregnth. Plain films of left shoulder displayed anterior dislocation, plain films of left hemipelvis and AP pelvis displayed no acute process. Shoulder reduction procedure was performed with Dr. Nguyen. Patient tired procedure well. Repeat plain film of left shoulder displayed anatomic reduction. Patient neurovascularly intact after shoulder reduction. Patient placed in sling. Patient to be discharged with orthopedic follow-up. Pt to follow up with orthopedic consult and PCP in 1-2 days. Patient to return to ED if new signs or symptoms develop or if condition worsens in any way. Case discussed in depth with and patient seen by Dr. Nguyen. (Bola Gimenez) Disposition <Jorden Nguyen - Last Filed: 09/23/18 20:39> Is patient prescribed a controlled substance at d/c from ED?: No Time of Disposition: 21:09 <Bola Gimenez - Last Filed: 09/23/18 21:10> Clinical Impression: Anterior shoulder dislocation Disposition: HOME SELF-CARE Condition: Stable Instructions (If sedation given, give patient instructions): Fall Prevention for Older Adults (ED) Additional Instructions: Patient to adhere to previously discussed treatment plan and will take medication(s) as directed. Patient to follow up with PCP in 1-2 days. Patient to return to ED if symptoms do not improve. Referrals: Chantelle Simpson MD [Primary Care Provider] - 1-2 days Ambrocio Grande MD [STAFF PHYSICIAN] - 1-2 days
--- NOTE | 2018-09-23 20:29 | XR ---
PROCEDURE: XR humerus LT - 1V DATE AND TIME: 09/23/2018 7:28 PM CLINICAL INDICATION: PHH; Pain TECHNIQUE: Oblique AP COMPARISON: None FINDINGS: There is anteroinferomedial dislocation of the humeral head with respect to the bony glenoi d. No fractures are evident on this single view. IMPRESSION: ANTERIOR SHOULDER DISLOCATION.
--- NOTE | 2018-09-23 20:30 | XR ---
PROCEDURE: XR shoulder limited LT - 1V DATE AND TIME: 09/23/2018 7:28 PM CLINICAL INDICATION: PHH; Pain TECHNIQUE: Department protocol COMPARISON: None FINDINGS: There is anteroinferomedial dislocation of the humeral head with respect to the bony glenoi d. No fractures are evident on this single view. IMPRESSION: ANTERIOR DISLOCATION.
--- NOTE | 2018-09-23 20:58 | XR ---
PROCEDURE: XR shoulder limited LT - 1V DATE AND TIME: 09/23/2018 8:35 PM CLINICAL INDICATION: PHH; POST REDUCTION TECHNIQUE: Department protocol COMPARISON: Prereduction 09/23/2018 7:22 PM radiograph FINDINGS: The glenohumeral joint is now congruent The AC joint remains congruent. No definite fracture evident on this single radiographic view. IMPRESSION: Postreduction left shoulder.
[2018-09-23] MEDS ORDERED: ACET/COD 300 MG/30 MG STARTER PACK 6 TAB BTL PO STA (21:09)
[2018-09-23 21:17] VITALS: RESP 18
--- NOTE | 2018-09-23 21:42 | ED ---
Medical Decision Making - Medical Decision Making Dr. Jolly referred per pt request Disposition Clinical Impression: Anterior shoulder dislocation Disposition: HOME SELF-CARE Condition: Stable Instructions (If sedation given, give patient instructions): Fall Prevention for Older Adults (ED) Additional Instructions: Patient to adhere to previously discussed treatment plan and will take medication(s) as directed. Patient to follow up with PCP in 1-2 days. Patient to return to ED if symptoms do not improve. Is patient prescribed a controlled substance at d/c from ED?: No Referrals: Chantelle Simpson MD [Primary Care Provider] - 1-2 days Ambrocio Grande MD [STAFF PHYSICIAN] - 1-2 days Husam Jolly MD [REFERRING] - 1-2 days Procedures - [place] Protocol (Time Out) Procedure Performed:: Left shoulder reduction Performing Provider: Jorden Nguyen Nurse: Ramone Church Respiratory Therapist: Kathryn Moncada I Patient Identification (2 identifiers required): Verbal, Arm Band, Name Patient/Legal Industrial Relations Director has Confirmed: Identity, Site, Procedure, Consent
[2018-09-23 22:19] VITALS: BP 142/81; PULSE 80; TEMP 98
== END 2018-09-23 22:18 | disposition home or self-care (01) ==
LOC: EC 16:53
DX: S43.015A Anterior dislocation of left humerus, initial encounter (principal); I10 Essential (primary) hypertension; M19.90 Unspecified osteoarthritis, unspecified site; F41.9 Anxiety disorder, unspecified; Z79.899 Other long term (current) drug therapy; Z91.09 Other allergy status, other than to drugs and biological substances; Z91.048 Other nonmedicinal substance allergy status; Z91.013 Allergy to seafood; Z88.2 Allergy status to sulfonamides; Z96.642 Presence of left artificial hip joint; W01.0XXA Fall on same level from slipping, tripping and stumbling without subsequent striking against object, initial encounter; Y92.000 Kitchen of unspecified non-institutional (private) residence as the place of occurrence of the external cause
CPT/HCPCS: 73502; 73020; 73060; 99284; 23650; 99152; 99153; 96374; J2270

== ENCOUNTER → 2018-10-07 | Outpatient (CLI) | payer MEDICARE ==
--- NOTE | 2018-10-08 08:42 | MR ---
EXAMINATION TYPE: MR shoulder LT wo con DATE OF EXAM: 10/07/2018 COMPARISON: Plain film 09/23/2018 HISTORY: Left shoulder pain, Dislocation due to fall, Instability TECHNIQUE: Multiplanar, multisequence imaging of the left shoulder is performed without contrast. FINDINGS: Rotator Cuff: There is a complete tear of the supraspinatus and infraspinatus tendons with retraction of the supraspinatus tendon to the level of the acromioclavicular joint, infraspinatus tendon to the level of the acromion. Acromioclavicular Joint: There is hypertrophic change present, increased signal at the level of the j oint may BE due to local strain, tear. Glenohumeral Joint: There is mild anterior subluxation of the proximal humerus in relation to the gle noid. Labrum: There is abnormal increased signal involving the anterior bony labrum, inferior labrum anteri myles shows Bankart deformity, labrum is distorted and shows abnormal increased signal. Biceps Tendon: The long head of biceps is in normal location within bicipital groove. Some fluid sign al is present along the tendon. Bone marrow signal: Abnormal signal in the humeral head compatible with bone contusions, microtrabecu lar fractures, there is deformity posteriorly at the superior aspect compatible with Hill-Sachs defor mity. Other: There is a joint effusion present. Fluid signal is present along the lateral thoracic wall, po ssible hematoma measuring 6 x 2 x 2.5 cm. There is edema in the soft tissues. IMPRESSION: Posttraumatic changes as described including Bankart lesion, Hill-Sachs deformity, rotator cuff tear. Additional findings above.
== END | disposition home or self-care (01) ==
LOC: RADMRIMAIN 20:53
PROVIDERS: ATTEND Orthopaedic Surgery Adult Reconstructive Orthopaedic Surgery
DX: M75.122 Complete rotator cuff tear or rupture of left shoulder, not specified as traumatic (principal); S43.012A Anterior subluxation of left humerus, initial encounter; Z98.890 Other specified postprocedural states

== ENCOUNTER → 2018-10-09 | Outpatient (CLI) | payer MEDICARE ==
[2018-10-09 15:08] LABS: Prothrombin Time 10.4 sec (9.0-12.0)
[2018-10-09 15:13] LABS: Basophils % (A) 0 %; Eosinophils # (A) 0.1 k/uL (0-0.7); Eosinophils % (A) 2 %; HGB 14.2 gm/dL (11.4-16.0); Lymphocytes # (A) 1.3 k/uL (1.0-4.8); Lymphocytes % (A) 18 %; MCH 28.2 pg (25.0-35.0); MCHC 30.1 g/dL (31.0-37.0); MCV 93.5 fL (80.0-100.0); Mean Platelet Volume 6.7; Monocytes # (A) 0.3 k/uL (0-1.0); Monocytes % (A) 4 %; Neutrophils # (A) 5.6 k/uL (1.3-7.7); Neutrophils % (A) 75 %; Platelet Count 295 k/uL (150-450); RBC 5.03 m/uL (3.80-5.40); RDW 14.7 % (11.5-15.5); WBC 7.4 k/uL (3.8-10.6)
== END | disposition home or self-care (01) ==
LOC: LABPAT 13:30
PROVIDERS: ATTEND Orthopaedic Surgery
DX: Z01.812 Encounter for preprocedural laboratory examination (principal); Z01.818 Encounter for other preprocedural examination; M19.012 Primary osteoarthritis, left shoulder; Z79.01 Long term (current) use of anticoagulants
CPT/HCPCS: 80051; 85025; 85610; 87070; 93005

== ENCOUNTER 2018-10-22 10:38 | Inpatient (IN) | payer MEDICARE ==
--- NOTE | 2018-10-22 08:28 | HP ---
HISTORY AND PHYSICAL CHIEF COMPLAINT: Left shoulder pain and instability HISTORY OF PRESENT ILLNESS: The patient is a 77-year-old, right-hand dominant, retired female who presents with left shoulder pain after initial injury September 23, 2018. She fell in her kitchen, dislocating her shoulder. She has had a second dislocation episodes since. She has been wearing a sling since. She is unable to really raise her left arm ever since the initial injury. PAST MEDICAL HISTORY: Significant for arthritis and hypertension. PAST SURGICAL HISTORY: Significant for left total hip arthroplasty. CURRENT MEDICATIONS: 1. Aspirin. 2. Lotrel. 3. Tylenol #3. ALLERGIES: IODINE. FAMILY HISTORY: Significant for blood disorder and heart disease. SOCIAL HISTORY: Negative for current tobacco or alcohol use. REVIEW OF SYSTEMS: A 16point review of systems otherwise reviewed and is noncontributory. PHYSICAL EXAMINATION: On examination, the patient is approximately 5 foot 2, 215 pounds of endomorphic habitus. HEENT exam is nonfocal. Neck is supple. On examination of her left shoulder, she is tender about the anterior glenohumeral joint and anterior subacromial space. She has moderate subacromial crepitus. Active range of motion, forward elevation 50 degrees, external rotation with arm at side 30 degrees, internal rotation to the buttock. Impingement test, Neer test, and Speed tests are positive. She has a positive anterior apprehension sign with positive suppression sign. Her distal neurovascular exam otherwise appears intact in the left upper extremity. X-rays of the left shoulder obtained the office show severe glenohumeral joint space narrowing in addition to Hill-Sachs lesion and diminished humeral head to acromial distance. MRI report 10/07/2018 of the left shoulder shows a large rotator cuff tear with retraction along with a Hill-Sachs lesion and severe degenerative changes. IMPRESSION: 1. Left rotator cuff tear with retraction. 2. Left glenohumeral joint osteoarthrosis-severe. 3. Recurrent left glenohumeral joint dislocation/instability. RECOMMENDATIONS: I talked to the patient and her at length regarding her condition and treatment options. After a thorough discussion, they opt to proceed with surgery. We will plan to proceed with reverse left total shoulder arthroplasty. Risks and benefits were discussed at length in layman's terms. MMODL / IJN: [id number] /
[~2018-10-22 10:38] MED LIST changes: +ACETAMINOPHEN TAB 500 MG TAB PO ONE; +DEXAMETHASONE SOD PHOSPHATE 10 MG/ML 1 ML VIAL IV ONE; -LACTATED RINGERS 1,000 ML IV SCH; +MELOXICAM 7.5 MG TAB PO ONE; +MIDAZOLAM (PF) 2 MG/2 ML VIAL IV PRN; +TRANEXAMIC ACID 1,000 MG in SODIUM CHLORIDE 0.9% 100 ML IVPB ONE; +ceFAZolin IN SWFI 2 GM/20 ML SYRINGE IVP ONE; +fentaNYL (PF) 50 MCG/ML 2 ML AMP IV PRN
[2018-10-22] MEDS: LACTATED RINGERS 1,000 ML IV SCH (11:32)
[2018-10-22] MEDS ORDERED: DEXAMETHASONE SOD PHOSPHATE 10 MG/ML 1 ML VIAL IV ONE (11:33)
[2018-10-22] MEDS ORDERED: TRANEXAMIC ACID 1,000 MG/10 ML VIAL ONE (12:42)
[2018-10-22] MEDS ORDERED: MIDAZOLAM 2 MG/2 ML VIAL ONE (12:42)
[2018-10-22] MEDS ORDERED: LIDOCAINE 1% INJ 10MG/ML (20 ML MDV) ONE (12:42)
[2018-10-22] MEDS ORDERED: PHENYLEPHRINE-0.9% NACL SYG 1 MG/10 ML SYRINGE ONE (12:42)
[2018-10-22] MEDS ORDERED: PROPOFOL 10 MG/ML 20 ML VIAL IV ONE (12:42)
[2018-10-22] MEDS ORDERED: SODIUM CHLORIDE 0.9% 100 ML BAG ONE (12:42)
[2018-10-22] MEDS ORDERED: ROCURONIUM BROMIDE 10 MG/ML 10 ML VIAL IV ONE (12:42)
[2018-10-22] MEDS ORDERED: ROPIVACAINE 5 MG/ML 30 ML VIAL ONE (12:42)
[2018-10-22] MEDS ORDERED: ceFAZolin 3,000 MG in SODIUM CHLORIDE 0.9% IRRIGATIO 3,000 ML IRRIGATION ONE (13:16)
--- NOTE | 2018-10-22 14:12 | P.ONQ ---
Anesthesiology Proc Note - PNB - Peripheral Nerve Block Performed Left Interscalene Single Time Out Performed: Yes Procedure Start Time: 11:58 Procedure Stop Time: 12:05 Indication: Acute Post-Operative Pain, Analgesia, Dx/Pain Location, Requested by physician Sedation Type: Awake Preparation: Sterile Prep Position: Supine Catheter: None Needle Types: On-Q Needle Size: 50mm (2") Needle Gauge: 20 Technique: Ultrasound Injectate: 0.5% Ropivacaine (see comment for volume) (20 ml total) Blood Aspirated: No Pain Paresthesia on Injection Noted: No Resistance on Injection: Normal Events: Uneventful and Well Tolerated
[2018-10-22] MEDS ORDERED: LACTATED RINGERS 1,000 ML IV ONE (14:13)
[2018-10-22] MEDS ORDERED: SENNOSIDES-DOCUSATE SODIUM 1 EACH TAB PO PRN (14:20)
[2018-10-22] MEDS ORDERED: HYDROmorphone 0.5 MG/0.5 ML SYRINGE IVP PRN ×2 (14:20)
[2018-10-22] MEDS ORDERED: ACETAMINOPHEN TAB 325 MG TAB PO PRN (14:22)
[2018-10-22] MEDS ORDERED: cloNIDine HCL 0.1 MG TAB PO PRN (14:27)
[2018-10-22] MEDS ORDERED: CALCIUM CARBONATE 500 MG CHEWABLE PO PRN (14:27)
--- NOTE | 2018-10-22 14:40 | P.OP ---
Date of Procedure: 10/22/18 Preoperative Diagnosis: Left shoulder rotator cuff arthropathy/glenohumeral instability with recurrent dislocation Postoperative Diagnosis: Same Procedure(s) Performed: Left reverse total shoulder arthroplasty Implants: Depuy Delta Xtend size 10 press-fit humeral stem, size 1 epiphysis, 38 mm +6 articular surface, 38 mm standard glenosphere, standard metaglene baseplate [facility] Surgeon: Bola Connors Guidance Adviser #1: Jules Aiken Estimated Blood Loss (ml): 150 Pathology: other (Humeral head) Condition: stable Disposition: PACU Indications for Procedure: The patient is a 78-year-old female who presents after a recent fall dislocating her left shoulder. She had recurrent episodes of dislocation and instability along with inability to raise her arm over her head. A discussion of the risks and benefits of operative intervention versus continued conservative measures was made with the patient. She opted to proceed with surgery. Operative risks to include infection, neurovascular injury, development of blood clots, possible fracture, possible instability and need for subsequent procedures was discussed. Informed consent was obtained. Operative Findings: As below Description of Procedure: The patient was brought to the operating room, and after induction of general anesthesia was placed into a beachchair position. The bony prominences were appropriately padded. The left upper extremity was prepped and draped in normal fashion. The bony outlines the acromion, distal clavicle, and coracoid process were outlined with a skin marker. A deltopectoral incision was made just lateral to the coracoid process extending proximal 12 cm. The skin was incised sharply. The subcutaneous tissues were divided bluntly. The cephalic vein was identified and the deltopectoral interval bluntly developed. The vein was gently retracted laterally. Subdeltoid adhesions were bluntly dissected. A self-retaining retractor was placed. The upper one third of the pectoralis major was released to help facilitate exposure. The long head of biceps previously had ruptured. The pseudocapsule was opened. A portion the subscapularis was intact. The remaining rotator cuff was retracted and scarred down. The head was gently dislocated. A starting hole was made in line with the humeral shaft. The canal was reamed by hand up to size 10. There was good distal chatter. The cutting guide was then placed in 20 of retroversion. The head was resected at the appropriate height. Attention was then paid towards preparing the glenoid. A posterior and anterior retractor was placed. The labral tissue was debrided from the 6:00 to 12 o'clock position. A bony Bankart lesion was noted involving the anterior glenoid involving approximately 20% of the glenoid. A guidepin was placed into the inferior portion of the glenoid where there was adequate bony coverage. The reamer was taken down to a bleeding bony surface. Central peg hole was drilled. A standard metaglene baseplate was inserted with good purchase. The inferior, superior, and posterior screw holes were filled with the appropriate locking screws of of the appropriate length. Good purchase was obtained. These were then locked. A 38 mm standard glenosphere was inserted and was fully seated. Attention was then paid towards preparing the proximal humerus. The appropriate broach was inserted in 20 of retroversion and was fully seated. An eccentric size 1 epiphyseal reamer was used down to the appropriate depth. A trial size 10 stem with a size 1 epiphysis was placed again in 20 of retroversion. There was good rotational stability. A 3 mm +9 articular surface was placed in the shoulder was gently reduced. It was taken through range of motion felt to be stable in flexion and extension with internal and external rotation. I felt there was adequate uatsdin of soft tissue tension judging off the conjoined tendon. The shoulder was gently dislocated and the trial components were then removed. The final size 10 humeral stem and size 1 epiphysis was gently impacted. Again there was good rotational stability. The 38 mm + articular surface was gently impacted. The shoulder was gently reduced and taken through range of motion. Again it was felt to be stable in flexion and extension with internal and external rotation. Again I felt there was adequate uatsdin of soft tissue tension. Pulsatile lavage was utilized. The upper portion of the subscapularis was repaired with #2 Ethibond suture. The deltopectoral interval was closed with interrupted 2-0 Vicryl sutures. The subcu tissues were reapproximated interrupted 2-0 Vicryl sutures. The skin was reprepped with 3-0 subarticular Prolene suture. Mastisol and Steri-Strips were applied. A sterile dressing was applied in addition to a sling. The patient was awoken from general anesthesia and transferred to the recovery room in fair condition. Blood loss was estimated at 150 mL. No complications were incurred. Sponge and needle counts were correct at the end of the case.
[2018-10-22 16:25] VITALS: BMI 39.2
--- NOTE | 2018-10-22 16:33 | XR ---
EXAMINATION TYPE: XR shoulder complete LT DATE OF EXAM: 10/22/2018 COMPARISON: 09/23/2018 HISTORY: Pain TECHNIQUE: Shoulder examined in single AP view FINDINGS: There is placement of a left humeral prosthesis with the glenoid component. The acromio-clavicular junction is normal. No acute fractures or dislocations are evident. IMPRESSION: 1. No acute fractures post left shoulder replacement.
[2018-10-22] MEDS: HYDROcodone/APAP 5-325MG 1 EACH TAB PO PRN (17:59)
[2018-10-22] MEDS: ceFAZolin IN SWFI 2 GM/20 ML SYRINGE IVP SCH (21:21)
[2018-10-22] MEDS: PANTOPRAZOLE 40 MG TABLET PO SCH (21:21)
[2018-10-23] MEDS: HYDROcodone/APAP 5-325MG 1 EACH TAB PO PRN ×4 (04:29→22:46)
[2018-10-23] MEDS: ceFAZolin IN SWFI 2 GM/20 ML SYRINGE IVP SCH (05:37)
[2018-10-23] MEDS: ASPIRIN 325 MG TAB PO SCH (07:04)
[2018-10-23] MEDS: PANTOPRAZOLE 40 MG TABLET PO SCH (07:04)
[2018-10-23] MEDS: LISINOPRIL 20 MG TAB PO SCH (07:05)
[2018-10-23] MEDS: amLODIPine 10 MG TAB PO SCH (07:05)
--- NOTE | 2018-10-23 07:41 | CONS ---
CONSULTATION REASON FOR CONSULTATION: Advice regarding hypertension and other medical issues requested by Dr. Connors. HISTORY OF PRESENT ILLNESS: This 78-year-old woman with a past medical history of hypertension, DJD, history of nephrolithiasis, history of UTI, bronchitis, pleurisy, history of anxiety being followed by Dr. Simpson in the outpatient setting underwent left reverse total shoulder arthroplasty by Dr. Connors. There is no history of fever or rigors. No history of headache, loss of consciousness, chest pain, palpitations, hematochezia or melena at this time. PAST MEDICAL HISTORY: Hypertension, DJD, nephrolithiasis, nephritis, history of anxiety. MEDICATIONS: Home medications are: 1. Norvasc benazepril, Lotrel, 10/20 p.o. q.a.m. 2. Tums 500 mg daily p.r.n. 3. Tylenol daily p.r.n. ALLERGIES: ANIMAL DANDER, IODINE, SHELLFISH, BACTRIM. FAMILY HISTORY: History of hypertension in the family. SOCIAL HISTORY: No history of smoking. No history of alcohol intake. REVIEW OF SYSTEMS: ENT: No diminished hearing or diminished vision. CARDIOVASCULAR SYSTEM: No angina. RESPIRATORY SYSTEM: No cough. GI: No nausea. : No dysuria. NERVOUS SYSTEM: No numbness or weakness. ALLERGY/IMMUNOLOGY: No asthma or hayfever. MUSCULOSKELETAL: As mentioned earlier. HEMATOLOGY/ONCOLOGY: No history of anemia. ENDOCRINE: No history of diabetes or hypothyroidism. CONSTITUTIONAL: As mentioned earlier. DERMATOLOGY: Negative. RHEUMATOLOGY: Negative. PSYCHIATRY: As mentioned earlier. PHYSICAL EXAMINATION: The patient is alert and oriented x3. Pulse is 84, blood pressure 112/55, respirations 16, temperature normal, pulse ox 97% on 2 L. HEENT: Conjunctivae normal. NECK: No jugular venous distention. CARDIOVASCULAR; S1, S2, muffled. RESPIRATORY: Breath sounds diminished at the base. No rhonchi, no crackles. ABDOMEN: Soft, nontender. LEGS: No edema. No swelling. NERVOUS SYSTEM: Higher functions as mentioned earlier. Moves all 4 limbs. No focal deficits. LYMPHATICS: No lymphadenopathy of the neck, axillae or groin. SKIN: No ulcer, rash or bleeding. JOINTS: Left shoulder arthroplasty. LABS: Labs are CBC, CMP within normal limits. ASSESSMENT: 1. Status post left reverse total shoulder arthroplasty. 2. Hypertension. 3. History of degenerative joint disease. 4. History of nephrolithiasis. 5. History of nephritis. 6. History of bronchitis and pleurisy. 7. History of motion sickness. 8. History of anxiety. RECOMMENDATIONS AND DISCUSSION: This 78-year-old woman who presented with multiple medical issues, at this time I recommend to continue current medication and symptomatic treatment. Otherwise at this time I recommend continue with current medications. Resume the home medications. DVT prophylaxis. Incentive spirometry. We will follow the patient closely with you and patient will be asked to follow with primary physician closely after discharge. Would also recommend proton pump inhibitors. Thank you, Dr. Connors, for letting us participate in the care of this patient. MMODL / IJN: [id number] /
[2018-10-23 07:43] LABS: Basophils % (A) 0 %; Eosinophils % (A) 0 %; HCT 45.3 % (34.0-46.0); HGB 14.6 gm/dL (11.4-16.0); Lymphocytes % (A) 9 %; MCH 30.4 pg (25.0-35.0); MCHC 32.1 g/dL (31.0-37.0); MCV 94.7 fL (80.0-100.0); Mean Platelet Volume 6.2; Monocytes # (A) 0.7 k/uL (0-1.0); Monocytes % (A) 6 %; Neutrophils # (A) 9.6 k/uL (1.3-7.7); Neutrophils % (A) 84 %; Platelet Count 255 k/uL (150-450); RBC 4.79 m/uL (3.80-5.40); RDW 14.9 % (11.5-15.5); WBC 11.4 k/uL (3.8-10.6)
[2018-10-23] MEDS: LACTATED RINGERS 1,000 ML IV SCH ×2 (09:31→09:32)
--- NOTE | 2018-10-23 13:27 | P.PN ---
Subjective Progress Note Date: 10/23/18 Principal diagnosis: Status post reverse left total shoulder arthroplasty Patient evaluated at bedside, resting comfortably. Pain is well-controlled. Patient denies chest pain or shortness of breath. Objective - Vital Signs Vital signs: Vital Signs Temp 97.7 F 10/23/18 07:00 Pulse 63 10/23/18 07:00 Resp 17 10/23/18 07:00 BP 137/79 10/23/18 07:00 Pulse Ox 98 10/23/18 07:00 Intake & Output 10/22/18 10/23/18 10/23/18 18:59 06:59 18:59 Intake Total 1601 1150 840 Output Total 150 Balance 1451 1150 840 Intake: IV 1301 Intake, IV Titration 750 Amount Lactated Ringers 1,000 ml 750 @ 50 mls/hr IV .Q20H MANJU Rx#:[id number] Oral 300 400 840 Output: Estimated Blood Loss 150 Other: # Voids 2 - Exam Left upper extremity: Incision is clean, dry and intact, stairs are good position. Soft tissue swelling and ecchymosis present throughout the extremity. Sensation to light touch is intact, radial pulses 2+ - Labs CBC & Chem 7: 10/23/18 07:04 Labs: Abnormal Lab Results - Last 24 Hours (Table) 10/23/18 Range/Units 07:04 WBC 11.4 H (3.8-10.6) k/uL Neutrophils # 9.6 H (1.3-7.7) k/uL Assessment and Plan Plan: Assessment: 1. Postop day #1 status post reverse total shoulder arthroplasty Plan: Pain control, continue current medication GI and DVT prophylaxis, continue current medication Wound care instructions were discussed Continues of arm sling Medical recommendations Plan for discharge home tomorrow Time with Patient: Less than 30
--- NOTE | 2018-10-23 17:31 | PN ---
PROGRESS NOTE DATE OF SERVICE: 10/23/2018 This 78-year-old woman who was admitted after left shoulder arthroplasty is being closely monitored. No chest pain. No palpitations. No fever. On exam, alert and oriented x3. Pulse is 63, blood pressure 137/79, respiration 17, temperature 97.9, pulse ox 98% on room air. HEENT: Conjunctivae normal. NECK: No jugular venous distention. CARDIOVASCULAR SYSTEM: S1, S2 muffled. RESPIRATORY SYSTEM: Breath sounds diminished at the bases. No rhonchi. No crackles. ABDOMEN: Soft. NERVOUS SYSTEM: No focal deficit. EXAMINATION OF SHOULDER: Status post left shoulder arthroplasty. LABS: WBC 11.4, hemoglobin 14.6. ASSESSMENT: 1. Status post left reverse total shoulder arthroplasty. 2. Hypertension. 3. History of degenerative joint disease. 4. History of nephrolithiasis. 5. History of nephritis. 6. History of bronchitis and pleurisy. 7. History of motion sickness. 8. History of anxiety request. RECOMMENDATIONS AND DISCUSSION: I recommend to continue current medications, continue with symptomatic treatment. Monitor closely. DVT prophylaxis. Incentive spirometry. The rest of the recommendations per Orthopedic Surgery. Further recommendations to follow. MMODL / IJN: [id number] /
[2018-10-23 19:37] VITALS: TEMP 97.5
[2018-10-24] MEDS: LACTATED RINGERS 1,000 ML IV SCH (05:28)
[2018-10-24] MEDS: HYDROcodone/APAP 5-325MG 1 EACH TAB PO PRN (05:33)
[2018-10-24 07:27] VITALS: BP 118/71; PULSE 57; RESP 16
[2018-10-24] MEDS: amLODIPine 10 MG TAB PO SCH (07:28)
[2018-10-24] MEDS: LISINOPRIL 20 MG TAB PO SCH (07:28)
[2018-10-24] MEDS: PANTOPRAZOLE 40 MG TABLET PO SCH (07:28)
[2018-10-24] MEDS: ASPIRIN 325 MG TAB PO SCH (07:28)
--- NOTE | 2018-10-24 10:01 | P.PN ---
Subjective Progress Note Date: 10/24/18 Principal diagnosis: Status post reverse left total shoulder arthroplasty Patient evaluated at bedside, resting comfortably. Pain is well-controlled. Patient denies chest pain or shortness of breath. Objective - Vital Signs Vital signs: Vital Signs Temp 97.5 F L 10/24/18 07:00 Pulse 57 L 10/24/18 07:00 Resp 16 10/24/18 08:35 BP 118/71 10/24/18 07:00 Pulse Ox 95 10/24/18 07:00 Intake & Output 10/23/18 10/24/18 10/24/18 18:59 06:59 18:59 Intake Total 1080 800 Balance 1080 800 Intake: Intake, IV Titration 800 Amount Lactated Ringers 1,000 ml 800 @ 50 mls/hr IV .Q20H MANJU Rx#:[id number] Oral 1080 - Exam Left upper extremity: Incision is clean, dry and intact, stairs are good position. Soft tissue swelling and ecchymosis present throughout the extremity. Sensation to light touch is intact, radial pulses 2+ - Labs CBC & Chem 7: 10/23/18 07:04 Assessment and Plan Plan: Assessment: 1. Postop day #2 status post reverse total shoulder arthroplasty Plan: Pain control, [place] 5 mg/25 mg at home GI and DVT prophylaxis, aspirin 81 mg twice a day Wound care instructions were discussed Continues of arm sling Medical recommendations Plan for discharge home today Time with Patient: Less than 30
--- NOTE | 2018-10-24 10:05 | P.DS ---
Providers Date of admission: 10/22/18 10:38 Expected date of discharge: 10/24/18 Attending physician: Bola Connors Consults: 10/22/18 14:20 Consult Physician Routine Consulting Provider: Jose Madrigal Consult Reason/Comments: medical management Do you want consulting provider notified?: Yes Primary care physician: [facility] Course: Date of admission: 10/22/2018 Date of discharge: 10/24/2018 Admission diagnosis: Status post reverse left total shoulder arthroplasty Discharge diagnosis: Same Attending physician: Dr. Connors Surgical procedures: Reverse left total shoulder arthroplasty Brief history: Patient is a 78-year-old female with a history of progressive left shoulder rotator cuff arthropathy. At this point patient has failed conservative treatment measures and has opted to proceed with a elective reverse left total shoulder arthroplasty. Hospital course: Details of patient's surgery can be found in operative report. Patient tolerated the procedure well and was subsequently transported to orthopedic floor. Patient's orthopeidc and medical care was provided daily. Patient had daily laboratory tests performed for evaluation of overall blood counts. Patient had daily physical therapy to include strengthening range of motion as well as education with walker ambulation. Patient was treated with aspirin for their postoperative DVT prophylaxis during their inpatient stay. Patient was noted to have a relatively uneventful postoperative course. Patient reported satisfactory pain control with oral pain medications by postoperative day 0. Patient showed satisfactory progress with physical therapy. Patient moved steadily through the program and had no difficulty meeting the goals by postoperative day 2. Given patient's otherwise satisfactory course and having met physical therapy goals, plan is to discharge patient home on postoperative day 2. Discharge condition/disposition: Patient will be discharged home in stable condition. Discharge medications: Instructions are given on resumption of patient's normal daily medications per primary care recommendation, in addition patient will be prescribed aspirin 81 mg, [place] 5 mg/325. Discharge instructions: 1. Wound care and infection precautions, keep incision dry and covered while showering, no lotions, creams, moisturizers. No soaking, tubs, pools, hottubs. Do not scrub over the incision. 2. Utilize arm sling 3. Ice and elevate when necessary. Do not exceed 20 minutes per hour with ice pack. 4. Utilize compression sleeve until seen at first follow up appointment. 7. Pain meds and anticoagulants per prescription. 8. Pain medication has potential to cause constipation. Increase oral fluid and fiber intake. Contact primary care provider if you have not had a bowel movement within 48 hours after discharge 10. Follow up in office at 2 weeks postop with Sheng Aiken PA-C 11. Follow up with your primary care doctor 7-10 days after discharge. 12. Contact [facility] with any questions, . Procedures: Reverse left total shoulder arthroplasty Patient Condition at Discharge: Good Plan - Discharge Summary Discharge Rx Participant: Yes New Discharge Prescriptions: New Aspirin [Adult Low Dose Aspirin EC] 81 mg PO BID #30 tablet. Hydrocodone/Acetaminophen [[place] 5-325] 1 - 2 each PO Q6HR PRN #40 tab PRN Reason: Pain No Action amLODIPine BESYLATE/BENAZEPRIL [Lotrel 10-20 MG] 1 cap PO QAM Calcium Carbonate [Tums] 500 mg PO DAILY PRN PRN Reason: Indigestion Acetaminophen-Codeine 300-30mg [Tylenol w/codeine #3] 1 tab PO DAILY PRN PRN Reason: Pain Discharge Medication List amLODIPine BESYLATE/BENAZEPRIL [Lotrel 10-20 MG] 1 cap PO QAM 09/17/17 [History] Acetaminophen-Codeine 300-30mg [Tylenol w/codeine #3] 1 tab PO DAILY PRN [History] Calcium Carbonate [Tums] 500 mg PO DAILY PRN 10/16/18 [History] Aspirin [Adult Low Dose Aspirin EC] 81 mg PO BID #30 tablet. 10/24/18 [Rx] Hydrocodone/Acetaminophen [[place] 5-325] 1 - 2 each PO Q6HR PRN #40 tab 10/24/18 [Rx] Follow up Appointment(s)/Referral(s): Jules Aiken PAC [PHYSICIAN RACKING TECHNICIAN] - 2 Weeks Activity/Diet/Wound Care/Special Instructions: Orthopedic Discharge Instructions: 1. Wound care and infection precautions, keep incision dry and covered while showering, no lotions, creams, moisturizers. No soaking, pools, hot tubs. Do not scrub over incision. 2. Utilize arm sling 3. Ice and elevate when necessary. Do not exceed 20 minutes per hour with ice pack. 4. Utilize compression sleeve until seen at first follow up appointment. 5. Pain meds and anticoagulants per prescription. 6. Pain medication has potential to cause constipation. Increase oral fluid and fiber intake. Contact primary care provider if you have not had a bowel movement within 48 hours after discharge. 8. Follow up in office at 2 weeks postop with Sheng Aiken PA-C 9. Follow up with your primary care doctor 7-10 days after discharge. 10. Contact [facility] with any questions, . Discharge Disposition: HOME WITH HOME HEALTH SERVICES
--- NOTE | 2018-10-24 18:25 | PN ---
PROGRESS NOTE DATE OF SERVICE: 10/24/2018 This 78-year-old woman was admitted after total shoulder arthroplasty. She is improving significantly. No chest pain. No palpitations. No fever. On exam, alert and oriented x3. Pulse is 57, blood pressure 118/72, respiration 16, temperature 97.4, pulse ox 94% on room air. HEENT: Conjunctivae normal. NECK: No jugular venous distention. CARDIOVASCULAR SYSTEM: S1, S2 muffled. RESPIRATORY SYSTEM: Breath sounds diminished at the bases. No rhonchi. No crackles. ABDOMEN: Soft. LEGS: No edema. No swelling. NERVOUS SYSTEM: No focal deficit. EXAMINATION OF SHOULDER: Status post arthroplasty. LABS: WBC 11.4. ASSESSMENT: 1. Status post left shoulder arthroplasty. 2. Hypertension. 3. History of degenerative joint disease. 4. History of nephrolithiasis. 5. History of nephritis. 6. History of bronchitis, pleurisy. 7. History of motion sickness. 8. History of anxiety. RECOMMENDATIONS AND DISCUSSION: I recommend to continue current medications, continue with symptomatic treatment. Otherwise at this time I recommend resuming the home medications. Follow closely with the primary physician in the outpatient setting. Incentive spirometry. DVT prophylaxis. Further recommendations per Orthopedic Surgery. Further recommendations to follow. MMODL / IJN: [id number] /
== END 2018-10-24 14:46 | disposition home health service (06) | DRG 483 ==
LOC: 2ORMAIN 10:38 → 4SSUR 14:29
PROVIDERS: ADMIT Orthopaedic Surgery; ATTEND Orthopaedic Surgery
PROC: 0RRK00Z Replacement of Left Shoulder Joint with Reverse Ball and Socket Synthetic Substitute, Open Approach (ICD-10-PCS; principal; 2018-10-22 12:30)
DX: M24.412 Recurrent dislocation, left shoulder (principal); I10 Essential (primary) hypertension; M19.012 Primary osteoarthritis, left shoulder; M75.102 Unspecified rotator cuff tear or rupture of left shoulder, not specified as traumatic; K21.9 Gastro-esophageal reflux disease without esophagitis; Z79.899 Other long term (current) drug therapy; Z87.442 Personal history of urinary calculi; Z87.440 Personal history of urinary (tract) infections; Z96.642 Presence of left artificial hip joint; Z86.59 Personal history of other mental and behavioral disorders; Z88.8 Allergy status to other drugs, medicaments and biological substances; Z91.041 Radiographic dye allergy status; Z82.49 Family history of ischemic heart disease and other diseases of the circulatory system; Z83.2 Family history of diseases of the blood and blood-forming organs and certain disorders involving the immune mechanism; W19.XXXA Unspecified fall, initial encounter; Y92.000 Kitchen of unspecified non-institutional (private) residence as the place of occurrence of the external cause
CPT/HCPCS: 64415; 85025; 88300